=== PATIENT | male | born 1940 | race Caucasian/White ===

== ENCOUNTER 2016-10-10 02:59 | Inpatient (IN) | payer OTHER ==
--- NOTE | 2016-10-10 03:12 | EDPHY ---
H & P HPI/ROS: HPI CHIEF COMPLAINT: "I cannot urinate" HISTORY OF PRESENT ILLNESS: This patient very pleasant 75-year-old male presents to the emergency room by private vehicle after he states he is having a hard time urinating. He has a history of BPH and multiple TURP's. Patient states that he last urinated around 8:00 p.m. however around 10:00 p.m. he tried to urinate was only able to get a dribble out with dark blood present. States his abdomen is distended is unable to urinate and is requesting Stearns catheter. He is very familiar with this process in the past. He has a local urologist. He denies any cardiac history, pulmonary history neurological history. He tells me that at 1 point he did have to self-cat and he did get infection from self cath. Upon arrival to the emergency room patient is having 6/10 suprapubic discomfort and pain, unable to urinate, does tell me that he noticed some blood in his urine approximately 3 days ago it has progressively gotten worse. Past Medical History: BPH, gross hematuria, turp Past Surgical History: TURP Social History: Denies daily use of drugs alcohol tobacco products Family History: Noncontributory ROS REVIEW OF SYSTEMS: A comprehensive 10 point review of systems is otherwise negative aside from elements mentioned in the history of present illness. Exam Constitutional triage nursing summary reviewed, vital signs reviewed, awake/ alert. Eyes normal conjunctivae and sclera, EOMI, PERRLA. HENT normal inspection, atraumatic, moist mucus membranes, no epistaxis, neck supple/ no meningismus, no raccoon eyes. Respiratory clear to auscultation bilaterally, normal breath sounds, no respiratory distress, no wheezing. Cardiovascular rate normal, regular rhythm, no murmur, no edema, distal pulses normal. Gastrointestinal distended abdomen, tender palpation suprapubic, no rebound, no guarding, normal bowel sounds, no distension, no pulsatile mass. Genitourinary no CVA tenderness. Musculoskeletal no midline vertebral tenderness, full range of motion, no calf swelling, no tenderness of extremities, no meningismus, good pulses, neurovascularly intact. Skin pink, warm, & dry, no rash, skin atraumatic. Neurologic awake, alert and oriented x 3, AAOx3, moves all 4 extremities equally, motor intact, sensory intact, CN II-XII intact, normal cerebellar, normal vision, normal speech. Psychiatric normal mood/affect. Heme/Lymph/Immune no lymphadenopathy. Differential Diagnosis: includes but is not limited to in a particular order, urinary retention, outlet obstruction, gross hematuria, bladder tumor, renal failure Medical Decision Making: plan for this patient IV established, blood work checking creatinine, Stearns, bladder scan, ultrasound of bladder and kidneys. Re-evaluation: 0456: Patient has had 5 L of irrigation of his bladder he continues to drain bright red blood with clots there been multiple times in the emergency room is clotted his catheter off. This patient did have an ultrasound showed multiple large blood clots in his bladder. Due to the patient having ongoing obstruction despite 5 L of irrigation with intermittent clotting I will admitted to the hospitalist service due to urinary outflow obstruction and need for continuous bladder irrigation and neurological consult. 0503: At this time I will also consult Urology. Ultrasound of the bladder and kidneys The results of the study are large amount of blood clot in bladder, also right-sided hydroureter left-sided normal ureter. I discussed the results of this study with the radiologist Dr. Esquivel [id number]: spoke with Dr. Torres he would like the patient beam maintain NPO. Possibility that take patient to the operating room to evacuate clot. Source: Patient - Personal History Tetanus Vaccine Date: WITHIN 10 YRS - Medical/Surgical History Hx Asthma: No Hx Chronic Respiratory Disease: No Hx Diabetes: No Hx Cardiac Disease: Yes Hx Renal Disease: No Hx Cirrhosis: No Hx Alcoholism: No Hx HIV/AIDS: No Hx Splenectomy or Spleen Trauma: No Other PMH: medical BPH,. Surgery TURP 1.5 years ago second one. left hip replacement - Social History Smoking Status: Former smoker Constitutional: Initial Vital Signs Temperature (C) 36.5 C 10/10/16 03:00 Heart Rate 75 10/10/16 03:00 Respiratory Rate 18 10/10/16 03:00 Blood Pressure 125/85 H 10/10/16 03:00 O2 Sat (%) 96 10/10/16 03:00 O2 Delivery Mode Room Air Allergies/Adverse Reactions: No Allergies [NKA] Allergy (Verified 08/09/12 12:30) Home Medications: Medication Instructions Recorded Finasteride [Proscar 5 MG (*)] 5 mg PO HS 04/21/13 Medical Decision Making - Data Points Laboratory Results: Laboratory Results 10/10/16 03:30 10/10/16 03:30 10/10/16 10/10/16 10/10/16 03:33 03:30 03:30 WBC 7.76 10^3/uL 10^3/uL (3.80-9.50) RBC 4.61 10^6/uL 10^6/uL (4.40-6.38) Hgb 12.1 g/dL L g/dL (13.7-17.5) Hct 37.1 % L % (40.0-51.0) MCV 80.5 fL L fL (81.5-99.8) MCH 26.2 pg L pg (27.9-34.1) MCHC 32.6 g/dL g/dL (32.4-36.7) RDW 16.9 % H % (11.5-15.2) Plt Count 213 10^3/uL 10^3/uL (150-400) MPV 10.6 fL fL (8.7-11.7) Neut % (Auto) 57.0 % % (39.3-74.2) Lymph % (Auto) 31.1 % % (15.0-45.0) [place] % (Auto) 9.8 % % (4.5-13.0) Eos % (Auto) 0.8 % % (0.6-7.6) Baso % (Auto) 0.9 % % (0.3-1.7) Nucleat RBC Rel Count 0.0 % % (0.0-0.2) Absolute Neuts (auto) 4.43 10^3/uL 10^3/uL (1.70-6.50) Absolute Lymphs (auto) 2.41 10^3/uL 10^3/uL (1.00-3.00) Absolute Monos (auto) 0.76 10^3/uL 10^3/uL (0.30-0.80) Absolute Eos (auto) 0.06 10^3/uL 10^3/uL (0.03-0.40) Absolute Basos (auto) 0.07 10^3/uL 10^3/uL (0.02-0.10) Absolute Nucleated RBC 0.00 10^3/uL 10^3/uL (0-0.01) Immature Gran % 0.4 % % (0.0-1.1) Immature Gran # 0.03 10^3/uL 10^3/uL (0.00-0.10) PT 13.3 SEC SEC (12.0-15.0) INR 1.02 (0.83-1.16) APTT 29.3 SEC SEC (23.0-38.0) Sodium 137 mEq/L mEq/L (134-144) Potassium 4.4 mEq/L mEq/L (3.5-5.2) Chloride 106 mEq/L mEq/L (97-110) Carbon Dioxide 21 mEq/l L mEq/l (22-31) Anion Gap 10 mEq/L mEq/L (8-16) BUN 37 mg/dL H mg/dL (7-23) Creatinine 1.3 mg/dL mg/dL (0.7-1.3) Estimated GFR 54 Glucose 96 mg/dL mg/dL (70-100) Calcium 10.0 mg/dL mg/dL (8.5-10.4) Departure - Departure Disposition: [facility] Inpatient Acute Clinical Impression: Urinary retention, Hematuria, Urinary outflow obstruction Condition: Good
[2016-10-10] MEDS ORDERED: LIDOCAINE 2% JELLY 20 ML (UROJECT) UR ONE (03:15)
[2016-10-10] MEDS ORDERED: NS 1,000 ML IV ONE (03:20)
[2016-10-10] MEDS ORDERED: LIDOCAINE 2% JELLY 20 ML (UROJECT) ONE ×2 (03:26→12:57)
[2016-10-10 03:37] LABS: % IMMATURE GRANULYOCYTES 0.4 % (0.0-1.1); ABSOLUTE IMMATURE GRANULOCYTES 0.03 10^3/uL (0.00-0.10); ADD DIFF? NO; ADD MORPH? NO; ADD SCAN? NO; ATYPICAL LYMPHOCYTE FLAG 0 (0-99); FRAGMENT RBC FLAG 0 (0-99); HEMATOCRIT 37.1 % (40.0-51.0); HEMOGLOBIN 12.1 g/dL (13.7-17.5); LEFT SHIFT FLG 0 (0-99); LIPEMIA HEMOLYSIS FLAG 80 (0-99); MEAN CELL HEMOGLOBIN 26.2 pg (27.9-34.1); MEAN CELL HEMOGLOBIN CONCENTR. 32.6 g/dL (32.4-36.7); MEAN CELL VOLUME 80.5 fL (81.5-99.8); MEAN PLATELET VOLUME 10.6 fL (8.7-11.7); PLATELET CLUMPS FLAG 10 (0-99); PLATELET COUNT 213 10^3/uL (150-400); RED BLOOD CELL COUNT 4.61 10^6/uL (4.40-6.38); RED CELL DISTRIBUTION WIDTH 16.9 % (11.5-15.2)
[2016-10-10 04:07] LABS: ANION GAP 10 mEq/L (8-16); CARBON DIOXIDE 21 mEq/l (22-31); CHLORIDE 106 mEq/L (97-110); CREATININE 1.3 mg/dL (0.7-1.3); GLOMERULAR FILTRATION RATE 54; GLUCOSE 96 mg/dL (70-100); POTASSIUM 4.4 mEq/L (3.5-5.2); SODIUM 137 mEq/L (134-144)
[2016-10-10 05:20] LABS: INR 1.02 (0.83-1.16); PROTIME(PATIENT) 13.3 SEC (12.0-15.0)
[2016-10-10 05:21] LABS: APTT 29.3 SEC (23.0-38.0)
[2016-10-10] MEDS ORDERED: ONDANSETRON DISINTEGRATING 4 MG TAB PO PRN (07:55)
[2016-10-10] MEDS ORDERED: ONDANSETRON 4 MG/2 ML VIAL IVP PRN (07:55)
[2016-10-10] MEDS ORDERED: ACETAMINOPHEN 325 MG TAB PO PRN (07:55)
--- NOTE | 2016-10-10 08:38 | GHP ---
[f rep st] HISTORY AND PHYSICAL DATE OF ADMISSION: 10/10/2016 HISTORY OF PRESENT ILLNESS: The patient is a pleasant 75-year-old gentleman with a history of BPH, and intermittent urinary bleeding. He had presumed bleeding from his prostatic bed 2 years ago, req uiring fulguration of the prostatic bed, it was felt secondary to a venous bleed. Since then, he marcus s noticed intermittent urinary bleeding, he says as many as 3 times a month. He will notice small c lots that are as big as a cm or less, and typically they will last for a day, and then get better. This time, they started a couple of days ago, and they got worse and worse, and last night he was un able to urinate, so ultimately sought care. He takes no blood thinners, or aspirin, or other antiplatelet agents. He really has no vascular dis ease of which to speak. His coags are normal on presentation and they have historically been normal as well. He has been eating and drinking normally as of late. REVIEW OF SYSTEMS: A complete 10-point review of systems conducted and negative, except as noted in the HPI. PAST MEDICAL HISTORY: 1. BPH, status post TURP in 2009 or 2011 approximately. 2. Gross hematuria. 3. History of fulguration of the prostatic bed in 2013 by . 4. History of sepsis from self catheterization. 5. Left hip replacement in 2012. 6. History of left ureteroscopy in 2013, with apparent no filling defect. ALLERGIES: None. MEDICATIONS: His home medications are Finasteride, which it sounds like he takes infrequently. FAMILY HISTORY: Reviewed and unremarkable. SOCIAL HISTORY: Rare alcohol. No tobacco. 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 PHYSICAL EXAM: VITAL SIGNS: Temp 36.4, blood pressure 135/76, pulse 54, breathing 18 times a minut e, 93% on room air. GENERAL: No acute distress. HEENT: Sclerae anicteric. Oropharynx clear. Mu cous membranes are moist. NECK: Supple without lymphadenopathy or JVD. LUNGS: Clear to auscultat ion bilaterally. HEART: S1, S2. ABDOMEN: Soft, nontender, nondistended. LOWER EXTREMITIES: Wit hout edema. Calves are nontender. SKIN: Without rash. NEUROLOGIC: Nonfocal. : The patient h as pink urine in his 3 way Stearns bag. I have discussed the case with Dr. Pavan Sharma of the emergency department. LABS: Sodium 137, potassium 4.4, chloride 106, bicarb 21, BUN 37, creatinine 1.3, his baseline is about 0.9. Glucose is 96. INR is 1. PTT is normal. White count 7.8, hematocrit 3 7.1, platelets are 262,000. MCV is low at 80.5. UA shows 50 to 200 red cells. There is an ultrasound which shows clots in the bladder, I reviewed/interpreted the images myself. ASSESSMENT AND PLAN: A 75-year-old gentleman with obstructive urinary bleeding. 1. Obstruction, 3 way Stearns catheter was placed, irrigating at this point in time, it is too early to tell whether the clots have been evacuated to the point where he is no longer obstructed. 2. Microcytosis. We will also send iron studies, certainly a risk for iron deficiency given his ch ronic blood loss. He is not critically anemic. 3. History of prostatic bed bleeding. The patient has clots in his bladder. He may need a cystosc opy. Urology has been consulted and will see him. 4. Prophylaxis. Pharmacologic prophylaxis is contraindicated given his active bleeding. 5. Acute kidney injury. This is likely secondary to obstruction. We will follow. The patient paddy ears euvolemic on exam. We will allow him to eat and drink and check his labs in the morning. 6. Disposition: Inpatient status. I anticipate greater than 2 midnights required for improvement of this process. /[id number]/MODL
--- NOTE | 2016-10-10 08:50 | SOAPPROG ---
SOAP Progress Note Assessment/Plan: Assessment: Recurrent gross hematuria w/ clot retention Plan: Continue CBI for now. Pelvic CT to assess amount of clot. Continue NPO for now. Formal consult dictated (#[id number]). 10/10/16 08:55 Objective: Vital Signs Temp Pulse Resp BP Pulse Ox 36.4 C 54 L 18 135/76 H 96 10/10/16 07:02 10/10/16 07:02 10/10/16 07:02 10/10/16 07:02 10/10/16 07:02 10/09/16 10/10/16 10/11/16 05:59 05:59 05:59 Intake Total 1000 Output Total 500 3000 Balance 500 -3000 PT 13.3 SEC (12.0-15.0) 10/10/16 03:33 INR 1.02 (0.83-1.16) 10/10/16 03:33 ICD10 Worksheet Patient Problems: Problems Problem Status Onset Hematuria Acute Urinary outflow obstruction Acute Urinary retention Acute Gross hematuria Acute
--- NOTE | 2016-10-10 09:23 | GCON ---
[f rep st] CONSULTATION UROLOGY CONSULTATION DATE OF CONSULTATION: 10/10/2016 REFERRING PHYSICIAN: Hospitalist Service REASON FOR CONSULTATION: Gross hematuria with clot retention. HISTORY: This is a 75-year-old gentleman, well known to my practice, but has not been seen since , who has a history of intermittent recurrent gross hematuria that has been presumed to be seconda ry to BPH. The patient had previously undergone evaluation and was scheduled to undergo GreenLight photo vaporization of his prostate to definitively treat this tissue. However, he canceled the surg nirav in 2014 and has not returned to my office since then. Over the last several months, the patient has had intermittent gross painless hematuria that would last 1-3 days and recur a few times a erin h. However, he has now developed clot retention since I have last seen him. He also has been non c ompliant with finasteride, which has been used to help control his bleeding, for at least the last s everal months. He otherwise has been doing well and denies any recent history of urinary tract infe ctions. Most recent bleeding episode started about 2 days ago and progressively worsened to the poi nt that he presented to the emergency room earlier this morning with inability to void. Stearns yayo ter was inserted and continuous irrigation was started. The patient also denies fevers, flu-like sy mptoms, or abdominal/flank pain prior to hospital presentation. PAST MEDICAL HISTORY: BPH with urinary obstruction, intermittent recurrent gross hematuria with marina t retention. Otherwise healthy. PAST SURGICAL HISTORY: Includes intraoperative cystoscopy with bladder clot evacuation in October, left hip replacement in July 2012, transurethral prostate resections in approximately 2011 and 2009 (both performed at [facility]). ADMISSION MEDICATIONS: None. MEDICAL ALLERGIES: None known. FAMILY HISTORY: He has 1 maternal uncle and 1 maternal grandfather and both from prostate [facility] with a total of 2 maternal uncles who have been diagnosed and treated for prostate cancer. SOCIAL HISTORY: The patient is and lives in the [place] area. 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 He consumes alcohol products infrequently and has an approximately 5 pack year smoking history from tobacco use prior to age 25. He has 6 ch ildren. PHYSICAL EXAMINATION: GENERAL: Pleasant well-developed, well-nourished white male, lying supine in bed, in no acute distress. VITAL SIGNS: Blood pressure 134/76, pulse 54, respirations 18, oxygen s aturations 96% on room air, temperature 36.4 Celsius. HEENT: Normocephalic, atraumatic. NECK: Morales pple. HEART: Regular rate. CHEST: Unlabored respiratory pattern. ABDOMEN: Soft without palpabl e masses. No obvious organomegaly. Specifically, there is no suprapubic fullness appreciated. GEN MICAH: A 24-Latvian [address] way Ste[address] catheter in place draining slightly dark colored yellow urine with moderate rate of continuous irrigation currently. Non circumcised phallus with unremarkable scrotal structures otherwise. EXTREMITIES: Warm without cyanosis, clubbing, nor edema. NEUROLOGIC: He i s alert and oriented. He answers all questions appropriately with normal mood and affect. VASCULAR : Normal femoral, dorsalis pedis, and posterior tibial pulses bilaterally. LABORATORY: CBC today notable for hemoglobin 12.1, hematocrit 37.1. Coagulation parameters normal. Chemistry panel is unremarkable. IMPRESSION: Gross hematuria with clot urinary retention, with known history of benign prostatic hyp ertrophy and residual prostate adenoma that is thought to be the source of his bleeding. The patien t has been noncompliant with followup as well as finasteride medication. PLAN: 1. We will maintain continuous bladder irrigation for now. 2. Obtain noncontrast pelvic CT scan this morning to assess degree of remaining clot in the bladder . 3. Continue n.p.o. for the present time until I have a chance to review his CT scan and determine w hether he will need operative intervention. 4. Restart finasteride. Thank you for this consultation. /[id number]/MODL
[2016-10-10] MEDS: D5W 1/2 NS 1,000 ML IV SCH ×2 (10:55→16:29)
[2016-10-10] MEDS: FINASTERIDE 5 MG TAB PO SCH (11:02)
[2016-10-10] MEDS ORDERED: IOPAMIDOL (ISOVUE-300) 150 ML BTL IV ONE (12:57)
[2016-10-10 13:05] LABS: % SATURATION 7 % (20-55); TOTAL IRON BINDING CAPACITY 349 ug/dL (260-490)
[2016-10-10] MEDS ORDERED: MIDAZOLAM 2 MG/2 ML VIAL ONE (13:12)
[2016-10-10] MEDS ORDERED: PROPOFOL 200 MG/20 ML VIAL ONE ×2 (13:14→13:33)
[2016-10-10] MEDS ORDERED: fentaNYL 100 MCG/2 ML INJ ONE (13:14)
[2016-10-10 13:24] LABS: FERRITIN - BCH 9.4 ng/mL (17.9-464.0)
[2016-10-10] MEDS ORDERED: ceFAZolin 2 GM/DEXTROSE 100 ML IV ONE (13:30)
--- NOTE | 2016-10-10 13:35 | POSTOPPROG ---
Post Op Note Date of Operation: 10/10/16 Surgeon: Christiano Torres (# [id number]) Pre-op Diagnosis: Gross hematuria w/ clot urinary retention, BPH Post-op Diagnosis: Gross hematuria w/ clot urinary retention, BPH Procedure: Cysto, evacuation of multiple clots, prostate fulguration Findings: See op note Inf/Abcess present in the surg proc area at time of surgery?: No EBL: Minimal (< 10 cc) Complications: None Specimen(s): None Text Box - Additional Text Additional Text: To RR in stable condition. Continue CBI today. Hopefully will be able to remove catheter & discharge tomorrow.
[2016-10-10] MEDS ORDERED: OPIUM/BELLADONNA ALKALO SUPP PR PRN (14:12)
--- NOTE | 2016-10-10 14:55 | GOP ---
[f rep st] OPERATIVE REPORT DATE OF OPERATION: 10/10/2016 SURGEON: Christiano Torres MD ANESTHESIA: Laryngeal mask. PREOPERATIVE DIAGNOSIS: 1. Gross hematuria with clot urinary retention. 2. Benign prostatic hypertrophy with prostatic obstruction. POSTOPERATIVE DIAGNOSIS: 1. Gross hematuria with clot urinary retention. 2. Benign prostatic hypertrophy with prostatic obstruction. PROCEDURE PERFORMED: 1. Cystourethroscopy with evacuation of multiple obstructing blood clots. 2. Prostatic fossa fulguration. FINDINGS: 1. Multiple obstructing blood clots within the bladder. 2. Significant circumferential BPH with friable and bleeding prostatic mucosa. 3. Evidence of prior transurethral prostate resection involving the proximal one-third of the prosta tic fossa and bladder neck. SPECIMENS: None. ESTIMATED BLOOD LOSS: Less than 10 cc. INDICATIONS: This gentleman was admitted earlier this morning with clot urinary retention. He pres ents for operative management at this time. The indications for the procedures, as well as potentia l risks and complications, were discussed with the patient preoperatively. He appeared to understan d, his questions were answered, and he wished to proceed. Written informed surgical consent was the reafter obtained. DESCRIPTION OF PROCEDURE: The patient was brought to the operating room and administered laryngeal mask anesthesia. He was carefully placed in the dorsal lithotomy position on the cystoscopic table. The genital area was sterilely prepped with Betadine scrub and paint, and then draped in usual cyrus rile fashion. Cystoscopy was performed with a 30-degree lens through a 25-Malagasy sheath. Anterior urethra revealed no abnormalities. Posterior urethra revealed significant lateral lobe BPH with fri able mucosal vessels that were bleeding somewhat upon passage of the scope. The proximal one-third of the prostatic fossa had been previously resected. The bladder neck was open. The bladder was mo mlpoqehk-ec-jtvxavy trabeculated with a few shallow diverticula and some post-catheterization mucosa l erythematous changes. There were also several clots within the bladder, and these were evacuated through the cystoscope utilizing an OPTIMIZERx evacuator. Otherwise, no stones, tumors, or other foreign bodies were seen within the bladder. Ureteral orifices were normal in regard to shape and position along a somewhat inflamed trigone. After removing all the clots, a 26-Malagasy resectoscopic sheath with a visual obturator, Jose resec toscope, and 30-degree lens were inserted. I then used a button electrode to thoroughly fulgurate t he prostatic mucosal surface laterally and along the anterior aspect. This resulted in adequate hem ostasis. Once this completed, the instruments were removed, and a 24-Malagasy 3-way Stearns catheter in serted without complication. 25 cc of sterile fluid was placed in the balloon, and the catheter was irrigated manually with clear return. The catheter was connected to bag drainage as well as contin uous irrigation with normal saline. The patient was then awakened and transferred to his bed, then taken to the recovery room. He tolerated the procedure well overall. COMPLICATIONS: None. DISPOSITION: He was transferred to the recovery room in stable condition. He will be maintained on continuous bladder irrigation through tomorrow morning. Assuming his urine remains clear, his Fole y catheter will be removed tomorrow, and once he is adequately voiding, he should be ready for disch arge tomorrow as well. /[id number]/MODL
--- NOTE | 2016-10-10 15:55 | HOSPPROG ---
Hospitalist Progress Note Assessment/Plan: Patient seen and examined. Treating for hematuria/clots. S/p cytsoscopy today per Dr Torres. Plan is to continue CBI tonight, possible dc tomorrow. Objective: Vital Signs Temp Pulse Resp BP Pulse Ox 36.4 C 50 L 14 135/79 H 94 10/10/16 14:57 10/10/16 14:57 10/10/16 14:57 10/10/16 11:56 10/10/16 11:56 10/09/16 10/10/16 10/11/16 05:59 05:59 05:59 Intake Total 1000 805 Output Total 500 3150 Balance 500 -2345 PT 13.3 SEC (12.0-15.0) 10/10/16 03:33 INR 1.02 (0.83-1.16) 10/10/16 03:33 ICD10 Worksheet Patient Problems: Problems Problem Status Onset Gross hematuria Acute Urinary retention Acute Hematuria Acute Urinary outflow obstruction Acute
--- NOTE | 2016-10-10 20:26 | SOAPPROG ---
SOAP Progress Note Assessment/Plan: Assessment: Recurrent gross hematuria w/ clot retention, s/p intraoperative clot evacuation and prostatic fossa fulguration earlier today. Plan: 1. 3-way Stearns replaced this evening due to small clot obstruction. Continue CBI overnight. 2. Will stop CBI in AM and should be ready for Stearns removal prior to discharge tomorrow. 3. Continue Proscar 5 mg daily following discharge. 4. No strenuous activity or lifting > 15 lbs. for 1 week. 5. FU in my office in 3 weeks. Subjective: Called by nursing for obstructed catheter, refractory to manual irrigation. Objective: Vital Signs Temp Pulse Resp BP Pulse Ox 36.2 C 51 L 16 128/76 H 99 10/10/16 16:09 10/10/16 16:09 10/10/16 16:09 10/10/16 16:09 10/10/16 16:09 10/09/16 10/10/16 10/11/16 05:59 05:59 05:59 Intake Total 1000 1396 Output Total 500 3250 Balance 500 -1854 PT 13.3 SEC (12.0-15.0) 10/10/16 03:33 INR 1.02 (0.83-1.16) 10/10/16 03:33 ICD10 Worksheet Patient Problems: Problems Problem Status Onset Hematuria Acute Urinary outflow obstruction Acute Urinary retention Acute Gross hematuria Acute
[2016-10-10] MEDS ORDERED: FINASTERIDE 5 MG TAB PO SCH (21:00)
[2016-10-11] MEDS: D5W 1/2 NS 1,000 ML IV SCH (01:24)
[2016-10-11 06:37] LABS: % IMMATURE GRANULYOCYTES 0.4 % (0.0-1.1); ABSOLUTE IMMATURE GRANULOCYTES 0.02 10^3/uL (0.00-0.10); ADD DIFF? NO; ADD MORPH? NO; ADD SCAN? NO; ATYPICAL LYMPHOCYTE FLAG 0 (0-99); FRAGMENT RBC FLAG 0 (0-99); HEMATOCRIT 33.2 % (40.0-51.0); HEMOGLOBIN 10.5 g/dL (13.7-17.5); LEFT SHIFT FLG 0 (0-99); LIPEMIA HEMOLYSIS FLAG 80 (0-99); MEAN CELL HEMOGLOBIN 26.2 pg (27.9-34.1); MEAN CELL HEMOGLOBIN CONCENTR. 31.6 g/dL (32.4-36.7); MEAN CELL VOLUME 82.8 fL (81.5-99.8); MEAN PLATELET VOLUME 11.3 fL (8.7-11.7); PLATELET CLUMPS FLAG 0 (0-99); PLATELET COUNT 180 10^3/uL (150-400); RED BLOOD CELL COUNT 4.01 10^6/uL (4.40-6.38); RED CELL DISTRIBUTION WIDTH 17.2 % (11.5-15.2)
[2016-10-11 07:01] LABS: ANION GAP 9 mEq/L (8-16); CALCIUM 9.1 mg/dL (8.5-10.4); CARBON DIOXIDE 20 mEq/l (22-31); CHLORIDE 111 mEq/L (97-110); CREATININE 0.9 mg/dL (0.7-1.3); GLOMERULAR FILTRATION RATE > 60; GLUCOSE 83 mg/dL (70-100); POTASSIUM 4.3 mEq/L (3.5-5.2); SODIUM 140 mEq/L (134-144)
[2016-10-11 07:47] VITALS: RESP 14; O2SAT 95
[2016-10-11] MEDS: FINASTERIDE 5 MG TAB PO SCH (10:11)
[2016-10-11 11:45] VITALS: BP 107/71; PULSE 74; TEMP 97.3
--- NOTE | 2016-10-11 12:37 | GDS ---
[f rep st] DISCHARGE SUMMARY DIAGNOSES: 1. Hematuria. 2. Bladder outlet obstruction due to clots. 3. Benign prostatic hyperplasia. PROCEDURE: Cystoscopy with clot removal and prostatic fossa fulguration. HOSPITAL COURSE: A 75-year-old man with a history of hematuria due to likely BPH presented with the same. He had bladder outlet obstructive symptoms due to clot. He also had gross hematuria. He wa s initially placed on CBI, was then taken to cystoscopy by Dr. Torres. Since that, his Stearns cathet er has been removed. He is urinating well without obstructive symptoms and no hematuria. He will r esume his Proscar and follow up with Dr. Torres in 3-4 weeks for more definitive treatment. BILLING: I spent more than 30 minutes on the day of discharge coordinating care and discussing this with Dr. Torres. He was inpatient as he did improve more rapidly than would have been expected on his initial presentation. /[id number]/MODL
== END 2016-10-11 13:21 | disposition home or self-care (01) | DRG 718 ==
LOC: F2W 06:23 → F1N 15:39
PROVIDERS: ADMIT Internal Medicine; ATTEND Internal Medicine
PROC: 0T9B70Z Drainage of Bladder with Drainage Device, Via Natural or Artificial Opening (ICD-10-PCS; 2016-10-10)
PROC: 3E1K78Z Irrigation of Genitourinary Tract using Irrigating Substance, Via Natural or Artificial Opening (ICD-10-PCS; 2016-10-10)
PROC: 0W3R8ZZ Control Bleeding in Genitourinary Tract, Via Natural or Artificial Opening Endoscopic (ICD-10-PCS; principal; 2016-10-10 12:45)
PROC: 0TCB8ZZ Extirpation of Matter from Bladder, Via Natural or Artificial Opening Endoscopic (ICD-10-PCS; principal; 2016-10-10 12:45)
DX: N42.1 Congestion and hemorrhage of prostate (principal); N32.89 Other specified disorders of bladder; R33.9 Retention of urine, unspecified; N40.1 Benign prostatic hyperplasia with lower urinary tract symptoms; Z96.642 Presence of left artificial hip joint
CPT/HCPCS: J0690; J2250; J2704; J3010; Q9967

== ENCOUNTER 2017-01-30 10:00 | Inpatient (IN) | payer OTHER ==
--- NOTE | 2017-01-30 10:47 | EDPHY ---
H & P Time Seen by Provider: 01/30/17 10:30 HPI/ROS: CHIEF COMPLAINT: Unable to urinate, hematuria HISTORY OF PRESENT ILLNESS: 76-year-old male with a history BPH presents hematuria and inability to urinate. His hematuria began around 21:00 yesterday evening, with considerable clotting. Today, he has been unable to urinate and is quite uncomfortable. He presented on 10/10/2016 for gross hematuria and urinary retention. He was admitted for bladder irrigation; cystoscopy revealed a friable prostate. He has had no difficulty since that time until yesterday. Symptoms are similar to those leading to his last admission. No fever, chills, vomiting, diarrhea, or other associated symptoms. Not anticoagulated. REVIEW OF SYSTEMS: Constitutional: No fever, no chills Eyes: No visual changes ENT: No sore throat Respiratory: No cough, no shortness of breath Cardiac: No chest pain Gastrointestinal: No nausea, no vomiting, no abdominal pain Genitourinary: Hematuria, urinary retention Musculoskeletal: No leg pain or swelling Skin: No rash Neurological: No headache, no numbness, no weakness Psychiatric: No depression Past Medical/Surgical History: BPH, TURP x2, left hip replacement. Social History: at bedside. Smoking Status: Former smoker Physical Exam: General Appearance: Alert, appears in pain Eyes: Pupils equal and round, no conjunctival pallor or injection ENT, Mouth: Mucous membranes moist Neck: Normal inspection Respiratory: Lungs are clear to auscultation Cardiovascular: Regular rate and rhythm Gastrointestinal: Suprapubic tenderness and distension. Abdomen is soft. Neurological: A&O, nonfocal, normal gait Skin: Warm and dry, no rash Extremities: Nontender, no pedal edema Psychiatric: Mood and affect normal Constitutional: Initial Vital Signs Temperature (C) 36.4 C 01/30/17 10:09 Heart Rate 66 01/30/17 10:09 Respiratory Rate 17 01/30/17 10:09 Blood Pressure 112/61 01/30/17 10:09 O2 Sat (%) 97 01/30/17 10:09 O2 Delivery Mode Room Air O2 (L/minute) 2 Allergies/Adverse Reactions: No Allergies [NKA] Allergy (Verified 08/09/12 12:30) Home Medications: Medication Instructions Recorded Finasteride [Proscar 5 MG (*)] 5 mg PO HS 04/21/13 Glucosamine Sulfate [Glucosamine 500 mg PO DAILY 01/30/17 Sulfate 500 MG (*)] Multivitamin with Minerals 1 each PO DAILY 01/30/17 [Multiple Vitamin] Tadalafil [Cialis] 20 mg PO DAILY PRN 01/30/17 Medical Decision Making ED Course/Re-evaluation: Stearns catheter placed. 200mL germain blood expressed. Irrigation performed. Plan to consult with Dr. Torres, urologist. Plan to admit. 11:40 Spoke with hospitalist service. Dr. Cota accepts admission for gross hematuria. 11:[address] Torres's office. He will consult. 12:20 Plan to administer morphine for pain management. Differential Diagnosis: Differential diagnosis includes but not limited to gross hematuria, urinary retention, outlet obstruction, bladder tumor, renal failure. - Data Points Laboratory Results: Laboratory Results 01/30/17 10:40 01/30/17 10:40 01/30/17 01/30/17 01/30/17 10:40 10:40 10:25 WBC 10.43 10^3/uL H 10^3/uL (3.80-9.50) RBC 4.42 10^6/uL 10^6/uL (4.40-6.38) Hgb 11.1 g/dL L g/dL (13.7-17.5) Hct 34.9 % L % (40.0-51.0) MCV 79.0 fL L fL (81.5-99.8) MCH 25.1 pg L pg (27.9-34.1) MCHC 31.8 g/dL L g/dL (32.4-36.7) RDW 18.6 % H % (11.5-15.2) Plt Count 252 10^3/uL 10^3/uL (150-400) MPV 10.9 fL fL (8.7-11.7) Neut % (Auto) 76.2 % H % (39.3-74.2) Lymph % (Auto) 15.3 % % (15.0-45.0) [place] % (Auto) 6.9 % % (4.5-13.0) Eos % (Auto) 0.6 % % (0.6-7.6) Baso % (Auto) 0.7 % % (0.3-1.7) Nucleat RBC Rel Count 0.0 % % (0.0-0.2) Absolute Neuts (auto) 7.95 10^3/uL H 10^3/uL (1.70-6.50) Absolute Lymphs (auto) 1.60 10^3/uL 10^3/uL (1.00-3.00) Absolute Monos (auto) 0.72 10^3/uL 10^3/uL (0.30-0.80) Absolute Eos (auto) 0.06 10^3/uL 10^3/uL (0.03-0.40) Absolute Basos (auto) 0.07 10^3/uL 10^3/uL (0.02-0.10) Absolute Nucleated RBC 0.00 10^3/uL 10^3/uL (0-0.01) Immature Gran % 0.3 % % (0.0-1.1) Immature Gran # 0.03 10^3/uL 10^3/uL (0.00-0.10) Sodium 140 mEq/L mEq/L (134-144) Potassium 4.1 mEq/L mEq/L (3.5-5.2) Chloride 107 mEq/L mEq/L (97-110) Carbon Dioxide 21 mEq/l L mEq/l (22-31) Anion Gap 12 mEq/L mEq/L (8-16) BUN 26 mg/dL H mg/dL (7-23) Creatinine 1.1 mg/dL mg/dL (0.7-1.3) Estimated GFR > 60 Glucose 112 mg/dL H mg/dL (70-100) Calcium 10.0 mg/dL mg/dL (8.5-10.4) Urine Color RED Urine Appearance TURBID Urine pH TNP Ur Specific [place] TNP Urine Protein TNP Urine Ketones TNP Urine Blood TNP Urine Nitrate TNP Urine Bilirubin TNP Urine Urobilinogen TNP Ur Leukocyte Esterase TNP Urine RBC TNP Urine WBC TNP Ur Epithelial Cells TNP Urine Glucose TNP Medications Given: Discontinued Medications Morphine Sulfate (Morphine) 4 mg IVP EDNOW ONE Stop: 01/30/17 12:24 Last Admin: 01/30/17 12:45 Dose: 4 mg Ondansetron HCl (Zofran) 4 mg IVP EDNOW ONE Stop: 01/30/17 12:22 Last Admin: 01/30/17 12:45 Dose: 4 mg Departure - Departure Disposition: [facility] Inpatient Acute Clinical Impression: Gross hematuria Condition: Fair Report Scribed for: Natali Rodriguez Report Scribed by: Daphne Claros Date of Report: 01/30/17 Time of Report: 10:52 Physician Review and Approval Statement: 01/30/17 10:53 Portions of this note were transcribed by a certified medical technician. I personally performed a history, physical exam, medical decision making, and confirmed accuracy of information the transcribed note.
[2017-01-30 10:48] LABS: COLOR RED
[2017-01-30] MEDS ORDERED: LIDOCAINE 2% JELLY 20 ML (UROJECT) ONE (10:57)
[2017-01-30 11:07] LABS: % IMMATURE GRANULYOCYTES 0.3 % (0.0-1.1); ABSOLUTE IMMATURE GRANULOCYTES 0.03 10^3/uL (0.00-0.10); ADD DIFF? NO; ADD MORPH? NO; ADD SCAN? NO; ATYPICAL LYMPHOCYTE FLAG 0 (0-99); FRAGMENT RBC FLAG 20 (0-99); HEMATOCRIT 34.9 % (40.0-51.0); HEMOGLOBIN 11.1 g/dL (13.7-17.5); LEFT SHIFT FLG 20 (0-99); LIPEMIA HEMOLYSIS FLAG 80 (0-99); MEAN CELL HEMOGLOBIN 25.1 pg (27.9-34.1); MEAN CELL HEMOGLOBIN CONCENTR. 31.8 g/dL (32.4-36.7); MEAN PLATELET VOLUME 10.9 fL (8.7-11.7); PLATELET CLUMPS FLAG 10 (0-99); PLATELET COUNT 252 10^3/uL (150-400); RED BLOOD CELL COUNT 4.42 10^6/uL (4.40-6.38); RED CELL DISTRIBUTION WIDTH 18.6 % (11.5-15.2)
[2017-01-30 11:19] LABS: ANION GAP 12 mEq/L (8-16); CARBON DIOXIDE 21 mEq/l (22-31); CHLORIDE 107 mEq/L (97-110); CREATININE 1.1 mg/dL (0.7-1.3); GLOMERULAR FILTRATION RATE > 60; GLUCOSE 112 mg/dL (70-100); POTASSIUM 4.1 mEq/L (3.5-5.2); SODIUM 140 mEq/L (134-144)
[2017-01-30] MEDS ORDERED: ONDANSETRON 4 MG/2 ML VIAL IVP ONE (12:21)
[2017-01-30] MEDS ORDERED: oxyCODONE IR 5 MG TAB PO PRN (13:28)
[2017-01-30] MEDS ORDERED: ONDANSETRON 4 MG/2 ML VIAL IVP PRN (13:28)
[2017-01-30] MEDS ORDERED: ONDANSETRON DISINTEGRATING 4 MG TAB PO PRN (13:28)
[2017-01-30] MEDS ORDERED: ACETAMINOPHEN 325 MG TAB PO PRN (13:28)
--- NOTE | 2017-01-30 14:16 | GHP ---
[f rep st] HISTORY AND PHYSICAL DATE OF ADMISSION: 01/30/2017 CHIEF COMPLAINT: Hematuria, urinary retention. HISTORY OF PRESENT ILLNESS: The patient is a 76-year-old with a history significant for BPH. He marcus s been followed by Dr. Torres. He has had 2 TURPs in the past, in 2011 and 2009. He has noted inte rmittent hematuria for years. Typically, this last for 1-3 days. It spontaneously resolves. He marcus s not had issues with any urinary retention or clots up until September when he was admitted here. At t hat time, he had bladder irrigation, underwent cystoscopy by Dr. Torres for evacuation of multiple c lots and prostate fulguration. He has been home and has not had any further hematuria up until this admission. He says his symptoms started about 9 p.m. last night. He noted some thick, sludgy bloo d coming out of his urethra. He started developing increasing urinary retention and difficulty urin ating, so he tried to self cath himself 3 times. Each time he was only getting a few ounces out. O vernight his abdominal discomfort became more and more intense until this morning when he was unable to take the pain anymore and came to the emergency department for further evaluation and treatment. They placed a 3-way Stearns and had started irrigating his bladder. He had a number of clots and bl ood come out immediately, and after a was given a little morphine, he currently feels good with mini mal pain. He denies any recent fevers, chills, illnesses. He has had no chest pain, cough, shortne ss of breath. No other abdominal complaints including nausea, vomiting. No bowel changes. No lowe r extremity edema. No other neurologic signs and symptoms. REVIEW OF SYSTEMS: A 10-point review of systems (constitutional, eyes, ENT, endocrine, cardiovascul ar, pulmonary, abdomen, , musculoskeletal, neurologic, psychiatric) were all reviewed and pertinen t positives per the HPI. PAST MEDICAL HISTORY: BPH, recurrent hematuria, and a history of a total hip replacement. FAMILY HISTORY: He has 1 uncle and 1 maternal grandfather who from prostate cancer, 2 other ma ternal uncles with prostate cancer. SOCIAL HISTORY: He is . He has a very remote history of smoking when he was 25 and occasion ally drinks alcohol. PHYSICAL EXAMINATION: VITAL SIGNS: He is afebrile. Heart rate 62, blood pressure 127/74, respirat ions 16. He is 94% on room air. GENERAL: He is a very pleasant 76-year-old who is in no distress. He is alert. HEENT: Pupils are small but equal. Extraocular movements intact. Sclerae anicteri c. Mucous membranes moist. NECK: Supple. No adenopathy. No carotid bruits. HEART: Regular rat e and rhythm. No murmur, gallop, or rub. LUNGS: Clear to auscultation. No wheeze, rhonchi, or ra les. ABDOMEN: Soft, nontender, nondistended to palpation. : He has a Stearns in place. EXTREMIT IES: No clubbing, cyanosis, or edema. MUSCULOSKELETAL: No joint deformities or effusions. NEUROL OGIC: His speech is fluent. He is alert. He is moving all 4 extremities. PSYCHIATRIC: His mood is normal, and he is appropriate. LABORATORY DATA: CBC shows a white count of 10.4, hemoglobin 11.1, which is fairly stable for him, and platelet count of 252. Electrolytes are normal, BUN 26, creatinine 1.1. ASSESSMENT AND PLAN: 1. 76-year-old presents with hematuria and clots with secondary urinary retention. Plan: Admit fo r observation. Place 3-way catheter for irrigation and consult Urology for further recommendations. I will defer to them if they want to do another imaging study like an ultrasound to see if there i s a large hematoma within his bladder. 2. DVT prophylaxis. Given his gross hematuria, will hold chemical prophylaxis and encourage ambula tion while he is here in the hospital. 3. Anemia, chronic. He does have low iron levels and would benefit from further evaluation with a colonoscopy, although I suspect he may have low iron levels simply from ongoing hematuria. Will def er this to his outpatient doctor. He plans on establishing care with a primary care provider and ho ninfaully, Dr. Nikolay Macias, his previous provider. /[id number]/MODL
[2017-01-30] MEDS: NS 1,000 ML IV SCH (15:34)
[2017-01-30] MEDS ORDERED: IOPAMIDOL (ISOVUE-300) 100 ML BTL ONE (16:07)
[2017-01-30] MEDS ORDERED: OPIUM/BELLADONNA ALKALO SUPP PR PRN (20:10)
[2017-01-30] MEDS: FINASTERIDE 5 MG TAB PO SCH (21:13)
--- NOTE | 2017-01-30 22:07 | GCON ---
[f rep st] CONSULTATION DATE OF CONSULTATION: 01/30/2017 REASON FOR CONSULT: Gross hematuria, urinary retention. HISTORY OF PRESENT ILLNESS: This is a pleasant 76-year-old male who is well known to our office wit h a history of recurrent gross hematuria with clot retention. He reports that last night around 9 p .m. he started to have blood in his urine, increasing difficulty voiding, and was unable to void at 5 this morning. He went into the emergency room and was found to have 200 cc of urine in his bladde r, with placement of a 22-Brazilian catheter, and had multiple clots irrigated. He is denying any curr ent bladder pain. He did have clot irrigation with cystoscopy by Dr. Torres in September, and at that t nancy underwent prostate fossa fulguration with cystourethroscopy and evacuation of multiple obstructi ng blood clots. Per patient report, he has been doing well until now. PAST SURGICAL HISTORY: BPH, TURP x2, left hip replacement. SOCIAL HISTORY: Former smoker. Lives with his . ALLERGIES: No known drug allergies. MEDICATIONS: Please see [facility] for review. REVIEW OF SYSTEMS: 10-point review of systems negative except as mentioned in HPI. PHYSICAL EXAM: VITAL SIGNS: Blood pressure 127/74, heart rate 62, respirations 16, O2 94 on room a ir. GENERAL: This is a well-developed, well-nourished male in no acute distress. HEENT: Normocep halic, atraumatic. Extraocular movements intact. NECK: Supple. No lymphadenopathy. Trachea midl ine. RESPIRATORY: No accessory respiratory muscle use. CARDIAC: Regular rate and rhythm. No obv ious JVD. No lower extremity edema. GI: Abdomen soft, nondistended, nontender to palpation. No h epatosplenomegaly. : No CVA tenderness. No bladder distention to palpation. The patient has a 22-Brazilian catheter in the penis, draining light pink to medium pink urine, without clots in the bag currently. INTEGUMENT: No obvious rashes or lesions. NEUROLOGIC: Patient is alert and oriented. Affect appropriate to situation. MUSCULOSKELETAL: Patient supine while examined, but moving upper extremities without difficulty. LABS: White blood cell count 10.43, hemoglobin 11.1, hematocrit 34.9, platelets 252. Coags biological chemist ry: Sodium 148, potassium 4.1, chloride 107, carbon dioxide 21, anion gap 12, BUN 26, creatinine 1. 1, glucose 112, calcium 10. ASSESSMENT AND PLAN: Gross hematuria. Clot retention. Recommend the patient continue to have clot CBI run, with hand clot irrigation as needed. Will order a pelvic CT to assess size of clot in the bladder. Consider cystoscopy with clot evacuation if hematuria continues or clots are unable to pa ss through catheter. /[id number]/MODL
[2017-01-31 04:41] LABS: HEMATOCRIT 30.4 % (40.0-51.0); HEMOGLOBIN 9.8 g/dL (13.7-17.5); MEAN CELL HEMOGLOBIN 25.9 pg (27.9-34.1); MEAN CELL HEMOGLOBIN CONCENTR. 32.2 g/dL (32.4-36.7); MEAN CELL VOLUME 80.4 fL (81.5-99.8); RED BLOOD CELL COUNT 3.78 10^6/uL (4.40-6.38); RED CELL DISTRIBUTION WIDTH 18.8 % (11.5-15.2)
[2017-01-31] MEDS: NS 1,000 ML IV SCH (04:41)
[2017-01-31 06:04] LABS: ANION GAP 7 mEq/L (8-16); CALCIUM 9.1 mg/dL (8.5-10.4); CARBON DIOXIDE 21 mEq/l (22-31); CHLORIDE 113 mEq/L (97-110); CREATININE 0.9 mg/dL (0.7-1.3); GLOMERULAR FILTRATION RATE > 60; GLUCOSE 83 mg/dL (70-100); POTASSIUM 4.2 mEq/L (3.5-5.2); SODIUM 141 mEq/L (134-144)
--- NOTE | 2017-01-31 08:56 | SOAPPROG ---
SOAP Progress Note Assessment/Plan: Assessment: Recurrent clot urinary retention - stable. Decreased H&H indicative of fairly significant bleeding, although I do not believe he is currently bleeding. Still has a significant amount of bladder clot, per yesterday's CT. Plan: 1. Continue CBI w/ manual irrigation prn today. 2. Will tentatively schedule intraoperative clot evacuation and prostate fulguration for tomorrow. Discussed w/ pt. and nursing staff. Subjective: No complaints currently. Did not require manual irrigation overnight. Objective: Vital Signs Temp Pulse Resp BP Pulse Ox 36.6 C 45 L 16 122/64 H 94 01/31/17 04:14 01/31/17 04:14 01/31/17 04:14 01/31/17 04:14 01/31/17 04:14 Laboratory Results 01/31/17 04:22 01/31/17 04:22 01/30/17 01/31/17 02/01/17 05:59 05:59 05:59 Intake Total 30 1134 Output Total 800 3260 Balance -770 -4716 Physical Exam - Physical Exam General Appearance: WD/WN, alert, no apparent distress Abdomen: non-tender, soft Male Genitalia: other (urine clear via Stearns on CBI) Skin: normal color, warm/dry Extremities: non-tender, normal inspection Neuro/Psych: alert, normal mood/affect, oriented x 3 ICD10 Worksheet Patient Problems: Problems Problem Status Onset Gross hematuria Acute Hematuria Acute Urinary outflow obstruction Acute Urinary retention Acute
[2017-01-31] MEDS ORDERED: NON-FORMULARY NEW DRUG (Multivitamin With Minerals [Multiple Vitamin] 1 EACH) PO SCH (09:00)
[2017-01-31] MEDS: GLUCOSAMINE SULF 500 MG CAP PO SCH (09:51)
[2017-01-31] MEDS: MULTIVITAMINS W-MINERALS 1 EACH TAB PO SCH (10:04)
[2017-01-31] MEDS ORDERED: PROTOCOL MAGNESIUM 1 DOSE IV PRN (10:41)
--- NOTE | 2017-01-31 10:49 | HOSPPROG ---
Hospitalist Progress Note Assessment/Plan: 76 yo male with hx of BPH followed by Dr. Valle admitted for hematuria and urinary retention. 3 way estrada/bladder irrigation started in the E.D. Pelvic CT c/w large bladder thrombus. O/N has developed asymptomatic bradycardia. Not on tele #Hematuria, BPH, Large Bladder Thrombus -Estrada/irrigation per Uro -Likely will have surgical removal tomorrow #New onset bradycardia. He reports a baseline of 60. In shape, lots of physical activity. -Not symptomatic, no CP or palpitations -Check EKG -Place on telemetry -check Mg, other electrolytes reviewed and ok -No Nausea or vomiting at this time -Has received pain meds #Acute Pain due to hematuria/bladder thrombus -pain mgmt #Anemia, likely iron deficient. likely chronic. Will need f/u with his PCP for discussion about colonoscopy #DVT proph: no chemical proph due to clot/hematuria -Start SCD's Subjective: Abd pain is better. Hematuria better. CT pelvis c/w large bladder thrombus/mass. New onset bradycardia. Not symptomatic. No CP or SOB. First encounter with this patient Objective: Vital Signs Temp Pulse Resp BP Pulse Ox 36.6 C 55 L 18 117/65 93 01/31/17 08:54 01/31/17 08:54 01/31/17 08:54 01/31/17 08:54 01/31/17 08:54 Laboratory Results 01/31/17 04:22 01/31/17 04:22 01/30/17 01/31/17 02/01/17 05:59 05:59 05:59 Intake Total 30 1134 Output Total 800 3260 Balance -610 -8962 - Physical Exam Constitutional: no apparent distress, appears nourished, not in pain Eyes: PERRL, EOMI Ears, Nose, Mouth, Throat: moist mucous membranes, hearing normal, ears appear normal Cardiovascular: no murmur, rub, or gallop, bradycardia, No JVD, No edema Respiratory: no respiratory distress, no rales or rhonchi, clear to auscultation Gastrointestinal: soft, non-tender abdomen Genitourinary: estrada in urethra Skin: warm Neurologic: AAOx3, sensation intact bilaterally, No weakness Psychiatric: interacting appropriately, not anxious, not encephalopathic ICD10 Worksheet Patient Problems: Problems Problem Status Onset Gross hematuria Acute Hematuria Acute Urinary outflow obstruction Acute Urinary retention Acute
--- NOTE | 2017-01-31 11:12 | CPEKG ---
Heart Rate: 52 RR Interval: 1154 P-R Interval: 192 QRSD Interval: 102 QT Interval: 416 QTC Interval: 387 P [place]: 55 QRS [place]: 10 T Wave [place]: 48 EKG Severity - NORMAL ECG - EKG Impression: SINUS RHYTHM EKG Impression: Agree with above. No significant change from August 12, 2012 Electronically Signed By: Mitul Vickers 31-Jan-2017 17:08:12
[2017-01-31] MEDS ORDERED: PNEUMOC 13-VAL CONJ-DIP CRM/PF 0.5 ML SYR IM ONE (12:54)
[2017-01-31] MEDS: FINASTERIDE 5 MG TAB PO SCH (20:38)
[2017-02-01 05:46] LABS: % IMMATURE GRANULYOCYTES 0.3 % (0.0-1.1); ABSOLUTE IMMATURE GRANULOCYTES 0.02 10^3/uL (0.00-0.10); ADD DIFF? NO; ADD MORPH? NO; ADD SCAN? NO; ATYPICAL LYMPHOCYTE FLAG 0 (0-99); FRAGMENT RBC FLAG 20 (0-99); HEMATOCRIT 31.5 % (40.0-51.0); HEMOGLOBIN 10.1 g/dL (13.7-17.5); LEFT SHIFT FLG 0 (0-99); LIPEMIA HEMOLYSIS FLAG 80 (0-99); MEAN CELL HEMOGLOBIN 25.6 pg (27.9-34.1); MEAN CELL HEMOGLOBIN CONCENTR. 32.1 g/dL (32.4-36.7); MEAN CELL VOLUME 79.9 fL (81.5-99.8); MEAN PLATELET VOLUME 11.4 fL (8.7-11.7); PLATELET CLUMPS FLAG 10 (0-99); PLATELET COUNT 214 10^3/uL (150-400); RED BLOOD CELL COUNT 3.94 10^6/uL (4.40-6.38)
[2017-02-01 06:03] LABS: ANION GAP 9 mEq/L (8-16); CALCIUM 9.4 mg/dL (8.5-10.4); CARBON DIOXIDE 22 mEq/l (22-31); CHLORIDE 111 mEq/L (97-110); CREATININE 0.9 mg/dL (0.7-1.3); GLOMERULAR FILTRATION RATE > 60; GLUCOSE 81 mg/dL (70-100); POTASSIUM 4.1 mEq/L (3.5-5.2); SODIUM 142 mEq/L (134-144)
[2017-02-01] MEDS: GLUCOSAMINE SULF 500 MG CAP PO SCH (09:50)
[2017-02-01] MEDS: MULTIVITAMINS W-MINERALS 1 EACH TAB PO SCH (09:51)
[2017-02-01] MEDS ORDERED: levOFLOXACIN 500 MG/DEXTROSE 100 ML IV ONE (11:30)
[2017-02-01] MEDS ORDERED: MIDAZOLAM 2 MG/2 ML VIAL IVP ONE (12:14)
--- NOTE | 2017-02-01 12:17 | PDANEPAE ---
ANE Past Medical History - Cardiovascular History Hx Hypertension: No Hx Arrhythmias: No Hx Chest Pain: No Hx Coronary Artery / Peripheral Vascular Disease: No Hx CHF / Valvular Disease: No Hx Palpitations: No - Pulmonary History Hx COPD: No Hx Asthma/Reactive Airway Disease: No Hx Recent Upper Respiratory Infection: No Hx Oxygen in Use at Home: No Hx Sleep Apnea: No Sleep Apnea Screening Result - Last Documented: Positive - Endocrine History Hx Diabetes: No Hypothyroid: No Hyperthyroid: No Obesity: no - Chronic Pain History Chronic Pain: No ANE Review of Systems - Exercise capacity METS (RN): 6 METS - Systems Cardiac: Reports: no symptoms Respiratory: Reports: no symptoms Gastrointestinal: Reports: no symptoms Genitourinary: Reports: hematuria Muscolosketal: Reports: no symptoms ANE Patient History - Allergies Allergies/Adverse Reactions: No Allergies [NKA] Allergy (Verified 08/09/12 12:30) - Home Medications Home medications: home medication list seen and reviewed Home Medications: Finasteride [Proscar 5 MG (*)] 5 mg PO HS 04/21/13 [Last Taken 01/29/17] Glucosamine Sulfate [Glucosamine Sulfate 500 MG (*)] 500 mg PO DAILY 01/30/17 [ Last Taken Unknown] Multivitamin with Minerals [Multiple Vitamin] 1 each PO DAILY 01/30/17 [Last Taken Unknown] Tadalafil [Cialis] 20 mg PO DAILY PRN 01/30/17 [Last Taken Unknown] - NPO status NPO Status: no food or drink >8 hours NPO Since - Liquids (Date): 01/31/17 NPO Since - Liquids (Time): 19:00 NPO Since - Solids (Date): 01/31/17 NPO Since - Solids (Time): 19:00 - Anes Hx Anes Hx: no prior problems - Smoking Hx Smoking Status: Former smoker ANE Labs/Vital Signs - Labs Result Diagrams: 02/01/17 04:56 02/01/17 04:56 - Vital Signs Blood Pressure: 117/89 Heart Rate: 56 Respiratory Rate: 16 O2 Sat (%): 95 Height: 187.96 cm Weight: 88.45 kg ANE Physical Exam - Airway Neck exam: FROM Mallampati Score: Class 1 Mouth exam: normal dental/mouth exam - Pulmonary Pulmonary: no respiratory distress, clear to auscultation - Cardiovascular Cardiovascular: regular rate and rhythym - ASA Status ASA Status: II ANE Anesthesia Plan Anesthesia Plan: GA w LMA
[2017-02-01] MEDS ORDERED: fentaNYL 100 MCG/2 ML INJ ONE (12:40)
[2017-02-01] MEDS ORDERED: PROPOFOL/EMULSION 500 MG/50 ML BOTTLE IV ONE (12:41)
--- NOTE | 2017-02-01 12:43 | POSTOPPROG ---
Post Op Note Date of Operation: 02/01/17 Surgeon: Christiano Torres (# [id number]) Anesthesia: LMA Pre-op Diagnosis: Clot urinary retention, BPH Post-op Diagnosis: BPH w/ bleeding Procedure: Prostatic fossa fulguration Findings: See op note Inf/Abcess present in the surg proc area at time of surgery?: No EBL: Minimal Complications: None Specimen(s): None Text Box - Additional Text Additional Text: To RR in stable condition. Continue CBI overnight as a precaution. Will order to remove Stearns in AM & pt. should be able to go home once adequately voiding.
[2017-02-01] MEDS ORDERED: epHEDrine SULFATE 10 MG/ML SYR ONE ×2 (13:19)
[2017-02-01] MEDS ORDERED: GLYCOPYRROLATE 0.2 MG/1 ML VIAL ONE (13:20)
[2017-02-01] MEDS ORDERED: ONDANSETRON 4 MG/2 ML VIAL ONE (13:21)
[2017-02-01] MEDS ORDERED: DEXAMETHASONE 4 MG/ML VIAL ONE (13:21)
[2017-02-01] MEDS ORDERED: PROMETHAZINE HCL 25 MG/ML INJ IVP PRN (13:46)
[2017-02-01] MEDS ORDERED: fentaNYL 100 MCG/2 ML INJ IVP PRN (13:46)
[2017-02-01] MEDS ORDERED: LR 500 ML IV PRN (13:46)
[2017-02-01] MEDS ORDERED: NALOXONE HCL 0.4 MG/ML INJ IVP PRN (13:46)
--- NOTE | 2017-02-01 13:47 | POSTANESTH ---
Post Anesthetic Evaluation Cardiovascular Status: Normal, Stable Respiratory Status: Normal, Stable Level of Consciousness/Mental Status: Can Participate in Eval, Moderately Sleepy Pain Control: Adequate, Prn Tx Ordered Nausea/Vomiting Control: Adequate, Prn Tx Ordered Complications Possibly Related to Anesthesia: None Noted
--- NOTE | 2017-02-01 15:01 | HOSPPROG ---
Hospitalist Progress Note Assessment/Plan: 76 yo male with hx of BPH followed by Dr. Valle admitted for hematuria and urinary retention. 3 way estrada/bladder irrigation started in the E.D. Pelvic CT c/w large bladder thrombus. Had surgical removal of thrombus today #Hematuria, BPH, Large Bladder Thrombus, surgical removal 02/01 -leave CBI as a precaution today -Remove estrada per Urology in a.m., if able to void and no further complication, can d/c #Sinus bradycardia. He reports a baseline of 60. In shape, lots of physical activity. -Not symptomatic, no CP or palpitations -EKG c/w Sinus bradycardia -better today, ok to stop telemetry #Acute Pain due to hematuria/bladder thrombus -pain mgmt #Anemia, likely iron deficient. likely chronic. Will need f/u with his PCP for discussion about colonoscopy #DVT proph: no chemical proph due to clot/hematuria -Start SCD's Subjective: has returned from surgery . doing well. No CP or SOB. Bradycardia has improved. Objective: Vital Signs Temp Pulse Resp BP Pulse Ox 36.7 C 55 L 10 L 103/58 L 93 02/01/17 14:54 02/01/17 14:54 02/01/17 14:10 02/01/17 14:54 02/01/17 14:54 Laboratory Results 02/01/17 04:56 02/01/17 04:56 01/31/17 02/01/17 02/02/17 05:59 05:59 05:59 Intake Total 900 Output Total 8200 0 Balance -8200 900 - Physical Exam Constitutional: no apparent distress, appears nourished, not in pain Eyes: PERRL, EOMI Ears, Nose, Mouth, Throat: moist mucous membranes Cardiovascular: regular rate and rhythym, No JVD, No bradycardia Respiratory: no respiratory distress, no rales or rhonchi, clear to auscultation Gastrointestinal: normoactive bowel sounds, soft, non-tender abdomen, no palpable masses Skin: warm Neurologic: AAOx3 Psychiatric: interacting appropriately, not anxious, not encephalopathic ICD10 Worksheet Patient Problems: Problems Problem Status Onset Gross hematuria Acute Hematuria Acute Urinary outflow obstruction Acute Urinary retention Acute
--- NOTE | 2017-02-01 19:58 | GOP ---
[f rep st] OPERATIVE REPORT DATE OF OPERATION: 02/01/2017 SURGEON: Christiano Torres MD ANESTHESIA: Laryngeal mask. PREOPERATIVE DIAGNOSIS: Recurrent clot urinary retention with history of benign prostatic hypertrophy. POSTOPERATIVE DIAGNOSIS: 1. Clot urinary retention, resolved. 2. Benign prostatic hypertrophy with prostatic bleeding. PROCEDURE PERFORMED: Cystoscopy with prostatic fossa fulguration. FINDINGS: No significant residual clot in bladder. Evidence of recent prostatic bleeding related to BPH. SPECIMENS: None. ESTIMATED BLOOD LOSS: Minimal. INDICATIONS: This gentleman was admitted night before last with clot urinary retention requiring continuous bladder irrigation and intermittent manual irrigation. The patient's CT scan at that time revealed significant clot within the bladder. As a result, the patient presents for operative clot evacuation and prostatic fossa fulguration to reduce risk of future bleeding. The indications for the procedures, as well as potential risks and complications , were discussed with the patient preoperatively. He appeared to understand, his questions were answered, and he wished to proceed. Written informed surgical consent was thereafter obtained. DESCRIPTION OF PROCEDURE: The patient was brought to the operating room and administered laryngeal mask anesthesia. He was carefully placed in the dorsal lithotomy position on the cystoscopic table. Existing indwelling Stearns catheter was removed. The genital area was sterilely prepped with Betadine scrub and paint, then draped in usual sterile fashion. Cystoscopy was performed initially with a 25-Stateless sheath, using the 30-degree and 70-degree cystoscopic lenses. Anterior urethra revealed no abnormalities. Posterior urethra revealed significant residual lateral lobe BPH that extended even beyond the verumontanum. This tissue appeared friable and had some associated ecchymosis, suggestive of recent bleeding. There was no acute ongoing bleeding appreciated at this time. There was also some residual adenoma versus BPH regrowth along the left lateral lobe that extended to the bladder neck and slightly into the bladder. The trigone was inflamed, consistent with recent catheterization, but was otherwise unremarkable. The remainder of the bladder revealed a heavily-trabeculated mucosal pattern with numerous shallow diverticula, which is chronic for this patient. Ureteral orifices were normal in regard to shape and position along the trigone. The bladder otherwise revealed no areas of abnormal erythema, tumors, nor significant foreign bodies. All the clot appeared to have been evacuated out of the bladder with continuous irrigation management on the floor. No significant residual clot was identified. No areas of active bleeding within the bladder were seen. There were some postoperative transurethral prostate resection-type changes along the floor of the prostate and the bladder neck. I then inserted an Meyer resectoscope with a button electrode. I used a button electrode to thoroughly fulgurate the prostatic mucosa circumferentially. At the completion of procedure, no active bleeding was seen. The instruments were removed and an 18-Stateless 3-way Stearns catheter inserted with 20 cc of sterile fluid placed in the balloon. The catheter return at the end of the case was completely clear. The catheter was connected to bag drainage as well as continuous irrigation with normal saline. He was awakened, transferred to his bed, then taken to the recovery room. He tolerated the procedure well overall. COMPLICATIONS: None. DISPOSITION: He was transferred to Recovery in stable condition. He will be maintained on continuous irrigation overnight prophylactically. Catheter will be removed in the morning, and patient should be ready for discharge once voiding after that. The patient is finally in agreement in proceeding with GreenLight photovaporization of the prostate to treat his residual BPH that is the source for his recurrent hematuria. This will be scheduled accordingly, to be done as an outpatient. /[id number]/MODL MTDD
[2017-02-01] MEDS: FINASTERIDE 5 MG TAB PO SCH (20:34)
[2017-02-02 05:36] LABS: % IMMATURE GRANULYOCYTES 0.5 % (0.0-1.1); ABSOLUTE IMMATURE GRANULOCYTES 0.03 10^3/uL (0.00-0.10); ADD DIFF? NO; ADD MORPH? NO; ADD SCAN? NO; ATYPICAL LYMPHOCYTE FLAG 0 (0-99); FRAGMENT RBC FLAG 20 (0-99); HEMOGLOBIN 9.8 g/dL (13.7-17.5); LEFT SHIFT FLG 0 (0-99); LIPEMIA HEMOLYSIS FLAG 80 (0-99); MEAN CELL HEMOGLOBIN 25.5 pg (27.9-34.1); MEAN CELL HEMOGLOBIN CONCENTR. 31.6 g/dL (32.4-36.7); MEAN CELL VOLUME 80.5 fL (81.5-99.8); MEAN PLATELET VOLUME 10.8 fL (8.7-11.7); PLATELET CLUMPS FLAG 0 (0-99); PLATELET COUNT 214 10^3/uL (150-400); RED BLOOD CELL COUNT 3.85 10^6/uL (4.40-6.38); RED CELL DISTRIBUTION WIDTH 18.7 % (11.5-15.2)
[2017-02-02 05:54] LABS: ANION GAP 8 mEq/L (8-16); CALCIUM 9.6 mg/dL (8.5-10.4); CARBON DIOXIDE 22 mEq/l (22-31); CHLORIDE 110 mEq/L (97-110); CREATININE 0.9 mg/dL (0.7-1.3); GLOMERULAR FILTRATION RATE > 60; GLUCOSE 103 mg/dL (70-100); MAGNESIUM 1.9 mg/dL (1.6-2.3); POTASSIUM 4.4 mEq/L (3.5-5.2); SODIUM 140 mEq/L (134-144)
[2017-02-02 08:12] VITALS: RESP 20
[2017-02-02] MEDS: MULTIVITAMINS W-MINERALS 1 EACH TAB PO SCH (08:18)
[2017-02-02] MEDS: GLUCOSAMINE SULF 500 MG CAP PO SCH (08:18)
[2017-02-02 11:25] VITALS: BP 133/75; PULSE 54; TEMP 97.7; O2SAT 95
--- NOTE | 2017-02-02 13:40 | HOSPPROG ---
Hospitalist Progress Note Assessment/Plan: 76 yo male with hx of BPH followed by Dr. Valle admitted for hematuria and urinary retention. 3 way estrada/bladder irrigation started in the E.D. Pelvic CT c/w large bladder thrombus. Had cytoscopy with prostatic fossa fulguration on . Monitored overnight with CBI in place. This was removed this morning and he is urinating w/o difficulty. Dr. Valle has cleared him for discharge. His hospitalization was complicated by sinus bradycardia. No events on telemetry. If this persists, he may need an opt cardiology evaluation. This was d/w the patient at length. DDx: #Hematuria, BPH, Large Bladder Thrombus, surgical removal 02/01 #Sinus bradycardia. He reports a baseline of 60. In shape, lots of physical activity. -Not symptomatic, no CP or palpitations -EKG c/w Sinus bradycardia #Acute Pain due to hematuria/bladder thrombus -pain mgmt #Anemia, likely iron deficient. likely chronic. Will need f/u with his PCP for discussion about colonoscopy PE VSS NAD AAOX3 RRR CTAB S/NT/ND NO ESTRADA IN Discharge Meds: see med rec F/u: Per above total time spent on discharge is 35 minutes Objective: Vital Signs Temp Pulse Resp BP Pulse Ox 36.5 C 54 L 20 133/75 H 95 02/02/17 11:17 02/02/17 11:17 02/02/17 11:17 02/02/17 11:17 02/02/17 11:17 Laboratory Results 02/02/17 05:09 02/02/17 05:09 02/01/17 02/02/17 02/03/17 05:59 05:59 05:59 Intake Total 900 Output Total 8200 2150 Balance -8200 -1250 ICD10 Worksheet Patient Problems: Problems Problem Status Onset Gross hematuria Acute Hematuria Acute Urinary outflow obstruction Acute Urinary retention Acute
== END 2017-02-02 14:00 | disposition home or self-care (01) | DRG 714 ==
LOC: F1N 13:27 → INTOOBSV 13:28 → OBSVTOIN 13:28 → F3E 01-31 12:16 → OBSVTOIN 01-31 12:52
PROVIDERS: ADMIT Internal Medicine; ATTEND Internal Medicine
PROC: 0V508ZZ Destruction of Prostate, Via Natural or Artificial Opening Endoscopic (ICD-10-PCS; principal; 2017-02-01 12:30)
DX: N40.1 Benign prostatic hyperplasia with lower urinary tract symptoms (principal); R33.9 Retention of urine, unspecified; Z23 Encounter for immunization; Z96.642 Presence of left artificial hip joint; Z87.891 Personal history of nicotine dependence; Z80.42 Family history of malignant neoplasm of prostate
CPT/HCPCS: 96374; G0009; G0378; J1100; J1956; J2250; J2405; J2704; J3010; Q9967

== ENCOUNTER → 2017-03-15 | Outpatient (CLI) | payer OTHER | LOC: BHFA 11:00 | PROVIDERS: ATTEND Internal Medicine Cardiovascular Disease | DX: I48.91 Unspecified atrial fibrillation (principal) ==

== ENCOUNTER 2017-10-30 15:12 | Inpatient (IN) | payer OTHER ==
--- NOTE | 2017-10-30 16:19 | CPEKG ---
Heart Rate: 124 RR Interval: 484 P-R Interval: 132 QRSD Interval: 84 QT Interval: 324 QTC Interval: 466 P [place]: 142 QRS [place]: 26 T Wave [place]: 4 EKG Severity - OTHERWISE NORMAL ECG - EKG Impression: SINUS OR ECTOPIC ATRIAL TACHYCARDIA Electronically Signed By: Imtiaz Ford 30-Oct-2017 22:58:56
[2017-10-30] MEDS ORDERED: NS 500 ML IV ONE (16:20)
[2017-10-30 16:31] LABS: PLATELET COUNT 450 10^3/uL (150-400)
[2017-10-30 16:39] LABS: INR 1.14 (0.83-1.16); PROTIME(PATIENT) 14.8 SEC (12.0-15.0)
[2017-10-30] MEDS ORDERED: PANTOPRAZOLE SODIUM 40 MG VIAL IVP ONE (16:47)
[2017-10-30 16:48] LABS: CREATINE KINASE 64 IU/L (0-224)
--- NOTE | 2017-10-30 17:06 | EDPHY ---
H & P Time Seen by Provider: 10/30/17 16:20 HPI/ROS: HPI Lightheaded, fatigue. 76-year-old male by private vehicle. This patient reports that over the last 3 days he has felt very lightheaded and fatigued. He reports that his lightheadedness is much worse when he is sitting and stands after sitting for a prolonged period of time. He denies any associated chest pain. He states that he feels like his heart has been beating faster. Denies palpitations though. No shortness of breath. Patient denies any rectal bleeding or melenic stools. Last bowel movement was yesterday. He describes this is normal. He reports that he has been eating less but states that he ate breakfast this morning. This included some fruit and yogurt. He reports that he has a history of prostate reduction surgeries. Last surgery was about a year ago performed by Dr. Torres of the Urology service. He reports that secondary to this he has had issues with bleeding from his prostate and hematuria. He reports that for least the last 7 or 8 days he has had gross hematuria as well as passing clots. He denies significant pain. He has not had a fever. ROS: Constitutional: No fever, no chills. As above. Eyes: No discharge. No changes in vision. ENT: No sore throat. No nasal congestion or rhinorrhea. Respiratory: No cough. No shortness of breath. Cardiac: No chest pain, no palpitations. Gastrointestinal: No abdominal pain, no vomiting, no diarrhea. Genitourinary: As above. No dysuria or increased frequency with urination. Musculoskeletal: No back pain. No neck pain. No myalgias or arthralgias. Skin: No rashes. Neurological: No headache. No focal weakness or altered sensation. Past medical history: BPH, as above, hip surgery. Social history: Nonsmoker. Here by himself. Denies alcohol. Physical Exam: General Appearance: Alert, no distress. Appears pale. This patient is responding to questions appropriately and in full sentences. This patient appears well-hydrated and well-nourished. Eyes: Pupils equal and round no pallor or injection. No lid edema, erythema or injection. ENT, Mouth: Mucous membranes are moist. The pharyngeal tissues are unremarkable. No edema or swelling. No asymmetry suggestive of abscess. No erythema or exudates. Respiratory: There are no retractions, lungs are clear to auscultation with good air movement bilaterally. Cardiovascular: Regular rate and rhythm. Tachycardia. No murmur appreciated. Gastrointestinal: Abdomen is soft and nontender, no masses, bowel sounds normal. No focal tenderness at McBurney's point. No Saavedra sign. Rectal exam: No hemorrhoids, no gross blood. Normal brown stool. Normal tone. Genitourinary: He expressed clot from his penile meatus. Genitalia otherwise normal. Neurological: Motor sensory function is grossly intact. Cranial nerves are normal. Gait is normal. Skin: Warm and dry, no rashes. Musculoskeletal: Neck is supple and nontender. Extremities are symmetrical. All joints range without pain or impingement. Psychiatric: No agitation. No depression. Database: EKG: EKG time is 4:17 p.m.; EKG shows a narrow complex normal sinus rhythm with a ventricular rate of 124. The NC, QRS, QT intervals are within normal limits. There are no ST-T wave changes indicative of ischemic or injury pattern. No evidence of right heart strain. Interpreted by me. Imaging: Chest x-ray AP portable; the cardiac mediastinal silhouette is unremarkable. No evidence of infiltrate or pneumothorax. No acute cardiopulmonary disease process noted. Interpreted by me. Procedures: Emergency department course: IV placed x2, vital signs reviewed. Patient started on 500 cc of IV normal saline to be given over the next 30 min. Patient tachycardic and relatively hypotensive. He states that his blood pressures usually run in the high 120s to low 130 systolic. 4:40 p.m., patient noted to be significantly anemic with a hemoglobin of 7.6. Patient typed and screened. Patient will be transfused 2 units of PRBCs in the emergency department. Likely source is bleeding from his prostate. 4:50 p.m., Dr. Torres of Urology paged. 5:45 p.m., spoke with hospitalist, Dr. Karol Cunha, case discussed in detail with her. She accepts this patient for admission to the step-down unit. 6:00 p.m., spoke with Dr. Torres of Urology. Case discussed with him in detail. He will see this patient on consultation. He requested placement of a [address] Stearns catheter and irrigation. 7:00 p.m., the patient is going to be transferred shortly to the step-down unit. He is currently being transfused. Bladder irrigation has been started. He is sleeping but easily arousable. He still remains tachycardic at 120. Blood pressure currently 109/75. He was transferred to the step-down unit in stable condition. Differential Diagnosis: The differential diagnosis on this patient includes but is not limited to prostatic hemorrhage. Gastrointestinal bleeding, cystitis unlikely. This represents a partial list of diagnoses considered. These considerations are based on history, physical exam, past history, reassessment and diagnostic testing. Smoking Status: Former smoker Constitutional: Initial Vital Signs Temperature (C) 36.9 C 10/30/17 15:44 Heart Rate 123 H 10/30/17 15:44 Respiratory Rate 18 10/30/17 15:44 Blood Pressure 113/59 L 10/30/17 15:44 O2 Sat (%) 97 10/30/17 15:44 O2 Delivery Mode Room Air Allergies/Adverse Reactions: No Allergies [NKA] Allergy (Verified 10/30/17 15:47) Home Medications: Medication Instructions Recorded Multivitamins [Multivitamin (*)] 1 each PO DAILY 10/30/17 Medical Decision Making - Diagnostics Imaging Results: Imaging Impressions Chest X-Ray 10/30/17 16:21 Impression: Left lower lobe pneumonia Critical Care Time: I spent a total of 42 minutes of critical care time in obtaining history, performing a physical exam, bedside monitoring of interventions, collecting and interpreting tests and discussion with consultants but not including time spent performing procedures. - Data Points Laboratory Results: Laboratory Results 10/30/17 16:25 10/30/17 16:25 10/30/17 10/30/17 10/30/17 17:00 16:56 16:25 WBC RBC Hgb Hct MCV MCH MCHC RDW Plt Count MPV Neut % (Auto) Lymph % (Auto) Greer % (Auto) Eos % (Auto) Baso % (Auto) Nucleat RBC Rel Count Absolute Neuts (auto) Absolute Lymphs (auto) Absolute Monos (auto) Absolute Eos (auto) Absolute Basos (auto) Absolute Nucleated RBC Immature Gran % Immature Gran # Platelet Estimate Polychromasia Hypochromasia Microcytic Cells Tear Drop Cells Acanthocytes (Spur) Keratocytes Smear Review By PT INR APTT D-Dimer Sodium Potassium Chloride Carbon Dioxide Anion Gap BUN Creatinine Estimated GFR Glucose Calcium Creatine Kinase CK-MB (CK-2) Fraction Troponin I NT-Pro-B Natriuret Pep Procalcitonin 0.11 ng/mL H ng/mL (0.02-0.10) Stool Occult Bld Scrn NEGATIVE (NEGATIVE) Patient ABO/Rh A POSITIVE Antibody Screen NEGATIVE Crossmatch IS Only See Detail 10/30/17 10/30/17 10/30/17 16:25 16:25 16:25 WBC 12.72 10^3/uL H 10^3/uL (3.80-9.50) RBC 3.80 10^6/uL L 10^6/uL (4.40-6.38) Hgb 7.6 g/dL L g/dL (13.7-17.5) Hct 25.1 % L % (40.0-51.0) MCV 66.1 fL L fL (81.5-99.8) MCH 20.0 pg L pg (27.9-34.1) MCHC 30.3 g/dL L g/dL (32.4-36.7) RDW 18.5 % H % (11.5-15.2) Plt Count 450 10^3/uL H 10^3/uL (150-400) MPV 9.7 fL fL (8.7-11.7) Neut % (Auto) 83.3 % H % (39.3-74.2) Lymph % (Auto) 8.8 % L % (15.0-45.0) Greer % (Auto) 6.0 % % (4.5-13.0) Eos % (Auto) 0.7 % % (0.6-7.6) Baso % (Auto) 0.6 % % (0.3-1.7) Nucleat RBC Rel Count 0.2 % % (0.0-0.2) Absolute Neuts (auto) 10.59 10^3/uL H 10^3/uL (1.70-6.50) Absolute Lymphs (auto) 1.12 10^3/uL 10^3/uL (1.00-3.00) Absolute Monos (auto) 0.76 10^3/uL 10^3/uL (0.30-0.80) Absolute Eos (auto) 0.09 10^3/uL 10^3/uL (0.03-0.40) Absolute Basos (auto) 0.08 10^3/uL 10^3/uL (0.02-0.10) Absolute Nucleated RBC 0.02 10^3/uL H 10^3/uL (0-0.01) Immature Gran % 0.6 % % (0.0-1.1) Immature Gran # 0.08 10^3/uL 10^3/uL (0.00-0.10) Platelet Estimate INCREASED H (ADEQ) Polychromasia 1+ H Hypochromasia 1+ H Microcytic Cells 2+ H Tear Drop Cells 1+ H Acanthocytes (Spur) 1+ H Keratocytes 1+ H Smear Review By Pending PT 14.8 SEC SEC (12.0-15.0) INR 1.14 (0.83-1.16) APTT 23.5 SEC SEC (23.0-38.0) D-Dimer 3.75 ug/mLFEU H ug/mLFEU (0.00-0.50) Sodium 136 mEq/L mEq/L (135-145) Potassium 5.1 mEq/L mEq/L (3.5-5.2) Chloride 102 mEq/L mEq/L (97-110) Carbon Dioxide 23 mEq/l mEq/l (22-31) Anion Gap 11 mEq/L mEq/L (8-16) BUN 25 mg/dL H mg/dL (7-23) Creatinine 1.1 mg/dL mg/dL (0.7-1.3) Estimated GFR > 60 Glucose 103 mg/dL H mg/dL (70-100) Calcium 9.7 mg/dL mg/dL (8.5-10.4) Creatine Kinase 64 IU/L IU/L (0-224) CK-MB (CK-2) Fraction 1.05 ng/mL ng/mL (0.00-3.19) Troponin I 0.018 ng/mL ng/mL (0.000-0.034) NT-Pro-B Natriuret Pep 802 pg/mL H pg/mL (0-450) Procalcitonin Stool Occult Bld Scrn Patient ABO/Rh Antibody Screen Crossmatch IS Only Medications Given: Ceftriaxone Sodium/Dextrose (Rocephin 1 Gm (Premix)) 50 mls @ 100 mls/hr IV DAILY ALEJANDRO PRN Reason: Protocol Stop: 11/29/17 18:59 Last Admin: 10/30/17 21:26 Dose: 50 mls Discontinued Medications Sodium Chloride (Ns) 500 mls @ 1,000 mls/hr IV EDNOW ONE PRN Reason: Protocol Stop: 10/30/17 16:49 Last Admin: 10/30/17 16:29 Dose: 500 mls Pantoprazole Sodium (Protonix) 80 mg IVP EDNOW ONE Stop: 10/30/17 16:48 Last Admin: 10/30/17 17:38 Dose: Not Given Departure - Departure Disposition: [facility] Inpatient Acute Clinical Impression: Anemia, Hematuria, Prostatic hemorrhage
[2017-10-30] MEDS ORDERED: ACETAMINOPHEN 325 MG TAB PO PRN (17:47)
[2017-10-30] MEDS ORDERED: ONDANSETRON 4 MG/2 ML VIAL IVP PRN (17:47)
[2017-10-30] MEDS ORDERED: ONDANSETRON DISINTEGRATING 4 MG TAB PO PRN (17:47)
[2017-10-30] MEDS ORDERED: LIDOCAINE 2% JELLY 20 ML (UROJECT) ONE (18:15)
--- NOTE | 2017-10-30 19:33 | GHP ---
[f rep st] HISTORY AND PHYSICAL DATE OF ADMISSION: 10/30/2017 CHIEF COMPLAINT: Anemia, lightheadedness, tachycardia. PRIMARY UROLOGIST: Dr. Man. HISTORY OF PRESENT ILLNESS: A 76-year-old male, history of BPH, status post 3 TURPs, presenting with hematuria and lightheadedness. He has been very fatigued over the last several weeks. He has had intermittent hematuria with clots. He feels fine if he is lying down, but presyncopal when he stands up. He has not lost consciousness because he has been able sit or lie down when feeling poorly. He has had tingling in his fingers intermittently the last couple days. He has complaint of a cough with yellow sputum. No fevers, chills, or sweats. 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 He denies nausea, vomiting, myalgias. No hematochezia, hematemesis or melena. REVIEW OF SYSTEMS: I completed a 10-point review of systems, negative except as noted in HPI. PAST MEDICAL HISTORY: BPH with prostate reduction surgeries, last a year ago. PAST SURGICAL HISTORY: TURP x3, left EVELIN, cystoscopy 01/2017. FAMILY HISTORY: Noncontributory. SOCIAL HISTORY: Lives in [place] with his , 55 years. No tobacco, alcohol or illicits. PHYSICAL EXAM: VITAL SIGNS: Temperature 36.9, blood pressure 113/59, heart rate 113 to 123, respirations 18, 97% on room air. GENERAL: Thin male, sitting in bed, very fatigued, pale. HEENT: PERRLA. EOMI. Conjunctival pallor. Soft palate pale. Dry mucous membranes. CV: Tachy. Regular. No murmurs, gallops, or rubs. LUNGS: Clear. Diminished. Crackles left base. ABDOMEN: Soft, nontender, nondistended. Positive bowel sounds. : No suprapubic or CVA tenderness. Urine in cup is grossly bloody. MUSCULOSKELETAL: 5/5 upper and lower extremity strength. NEUROLOGIC: 2 through 12 intact. PSYCHIATRIC: Alert and oriented x3. LAB: Sodium 136, potassium 5.1, chloride 102, carbon dioxide 23, BUN 25, creatinine 1.1, baseline is 0.91, glucose 103. Troponin 0.018. BNP is 802. Procalcitonin is pending. UA with 50 to 182 WBCs, 50 to 182 RBCs. WBC is 12, hemoglobin 7.6, hematocrit 25, platelets 450 (prior H and H was 10 and 35), platelets 450. Fecal occult blood was negative. Chest x-ray is personally reviewed by me. No pleural effusion. Small retrocardiac opacity. ASSESSMENT AND PLAN: 1. Acute blood loss anemia: due to hematuria. Denies any other bleeding source. Dr. Man was consulted. He will be transfused 2 units of blood. Aggressive intravenous fluid resuscitation. Will further evaluate for infection with urine culture with positive UA, as well as respiratory culture with recent cough. Await procalcitonin before starting antibiotics, as this could be bronchitis. 2. Tachycardia: due to blood loss anemia, dehydration. Aggressive intravenous fluids. We will check a lactate. 3. History of BPH, prior hematuria and clots: Again, Dr. Man was consulted. 4. Leukocytosis: Mild. May be secondary to dehydration. UA is positive for whites. Will treat with ceftriaxone. Culture is pending. He is afebrile. If fevers, will check blood cultures. 5. Diet: Regular. 6. Deep venous thrombosis prophylaxis: Sequential compression devices. 7. Disposition: Patient warrants inpatient admission given acute blood loss anemia requiring transfusion, IV antibiotics and further urologic evaluation. /[id number]/MODL MTDD
--- NOTE | 2017-10-30 23:46 | CPEKG ---
Heart Rate: 101 RR Interval: 594 QRSD Interval: 84 QT Interval: 344 QTC Interval: 446 QRS [place]: 61 T Wave [place]: 60 EKG Severity - ABNORMAL ECG - EKG Impression: ATRIAL FLUTTER, A-RATE 241 EKG Impression: LOW VOLTAGE IN FRONTAL LEADS Electronically Signed By: Griselda Yanez 31-Oct-2017 16:59:44
[2017-10-31] MEDS: NS 1,000 ML IV SCH ×2 (00:48→09:37)
[2017-10-31] MEDS: PANTOPRAZOLE SODIUM 40 MG VIAL IVP SCH ×2 (00:48→06:39)
--- NOTE | 2017-10-31 07:55 | PDMN ---
Medical Necessity Medical necessity: Pt meets IP criteria per MD; est los >2 mn for eval/tx of hematuria w/clots, acute blood loss anemia w/tachycardia, dehydration, fatigue, lightheadedness & intermittent tingling in fingers, as well as productive cough r/t LLL pneumonia; admit to Step Down ICU for further workup/monitoring, blood transfusion, aggressive IVFs, IV abx & Urology consult; hx BPH s/p 3 TURPs; per H&P & order 10/30/17
[2017-10-31] MEDS ORDERED: IOPAMIDOL (ISOVUE 370) 100 ML BTL IV ONE (08:52)
[2017-10-31] MEDS: MULTIVITAMINS 1 EACH TAB PO SCH (09:37)
[2017-10-31] MEDS ORDERED: guaiFENesin/CODEINE PHOS 10 ML UDCUP PO PRN (09:44)
[2017-10-31] MEDS ORDERED: CEPACOL LOZENGE PO PRN (09:44)
[2017-10-31] MEDS ORDERED: BENZONATATE 100 MG CAP PO PRN (09:45)
[2017-10-31] MEDS: guaiFENesin 600 MG TAB.ER PO SCH ×2 (11:02→19:52)
--- NOTE | 2017-10-31 11:21 | GCON ---
[f rep st] CONSULTATION DATE OF CONSULTATION: 10/31/2017 REASON FOR CONSULTATION: Gross hematuria. HISTORY OF PRESENT ILLNESS: This is a pleasant 76-year-old man who is well known to our office for similar complaints. He presented to the emergency room with gross hematuria and lightheadedness with increasing fatigue, had also been having some tingling in his fingers and feeling generally poor overall, but denying loss of consciousness, fever, or chills. REVIEW OF SYSTEMS: 10-point review of systems negative except as mentioned in the HPI with the addition of a cough. PAST MEDICAL HISTORY: BPH with multiple prostate surgeries. SURGICAL HISTORY: Prostate surgeries, EVELIN on the left, cystoscopy in 2017. FAMILY HISTORY: Noncontributory. SOCIAL HISTORY: Lives in [place] with his . No tobacco, alcohol, or drug use. PHYSICAL EXAMINATION: VITAL SIGNS: Blood pressure 100/56, heart rate 106, respirations 14, O2 97 on room air, temperature 36.6. GENERAL: In general, this is a pale, mildly ill appearing man in no acute distress. HEENT: Normocephalic , atraumatic. Extraocular movements intact. NECK: Supple. No lymphadenopathy. Trachea midline. RESPIRATORY: No accessory respiratory muscle use. CARDIAC: Regular rate. No lower extremity edema. No obvious JVD. GASTROINTESTINAL: Abdomen was soft, nondistended, nontender to palpation. GENITOURINARY: No tenderness to palpation over bladder. Catheter in place currently draining dark yellow urine. INTEGUMENT: Somewhat pale. MUSCULOSKELETAL: Patient was in a wheelchair, but able to move upper extremities without difficulty. NEUROLOGIC: He was alert and oriented. Affect appropriate to situation. LABORATORY: White blood cell count of 11.45, hemoglobin 8, hematocrit 26. Lactic acid 1.8. Chemistry, sodium 141, potassium 4.7, chloride 107, carbon dioxide 22, anion gap 12, BUN 22, creatinine 1.0, glucose 105, calcium 8.5. Urinalysis positive for blood and bacteria. Urine culture is pending. The patient also had EKG, was found to be in atrial flutter. Had a CT of the chest that showed bilateral lower lobe pneumonia. ASSESSMENT AND PLAN: Gross hematuria. The patient has been seen in our office numerous times for recurrent gross hematuria. Most recently had a GreenLight laser 02/2017. He has discussed this at length with Dr. Torres. At this point, we are recommending an open subtotal prostatectomy. This was again discussed with the patient in detail along with other options including repeat GreenLight laser versus TURP versus open prostatectomy. I strongly recommend he return to our office once he is feeling better to again discuss these options as I am concerned that this will become a recurrent situation for this patient. Case was also reviewed with Dr. Torres. /[id number]/MODL MTDD
--- NOTE | 2017-10-31 11:50 | ASMTCASEMG ---
Living Arrangements What is your living Answers: With Spouse arrangement? Who do you live with? Type Of Residence What kind of residence do Answers: House you live in? Discharge Plan Comments Coordination Status Comments Notes: Patient is a76yo male who was admitted for acute blood loss anemia, tachycardia, hx of BPH, leukocytosis, deep vein thrombosis. Patient requires inpatient status due to need for blood transfusion, IV ABX, and further urologic evaluation. Echocardiography consult ordered but no other therapies at this time. D/C plan TBD. CM will follow. Date Signed: 10/31/2017 11:50 AM Electronically Signed By:France Calderon LCSW
[2017-10-31] MEDS: METOPROLOL TARTRATE 25 MG TAB PO SCH ×3 (13:05→19:52)
--- NOTE | 2017-10-31 15:29 | ECHO ---
[email or web address] [address] [address] Main: [phone] Fax: [email or web address] Echocardiogram Name: SHARRON HIGGINBOTHAM MR#: [id number] Study Date: 10/31/2017 Study Time: 11:45 AM Date of : 1940 Age: 76 year(s) Height: 188 cm (74 in.) Weight: 87.09 kg (192 lb.) BSA: 2.14 m2 Gender: Male Examination: Echo Indication: EVAL NEW A FLUTTER Image Quality: Adequate Contrast: Requested by: Serge Rothman BP: 120 mmHg/69 mmHg Heart Rate: Rhythm: Indication: EVAL NEW A FLUTTER Procedure Staff Adult Care Manager: Melany Samuels RD Reading Physician: Singh Garcia MD Requesting Provider: Conclusions: No pericardial effusion. Preserved left ventricular systolic function. Left atrial enlargement. Mild mitral regurgitation. Right ventricular systolic pressure of 34 mm of mercury. Measurements: Chambers Valvular Assessment AV/MV Valvular Assessment TV/PV Normal Normal Normal Name Value Range Name Value Range Name Value Range Ao Renata (2D): 3.7 cm (1.4 cm-2.6 AV meanP mmHg ( - ) TR Vmax: 2.71 mm/s ( - ) cm) HARRY (VTI): 2.0 cm ( - ) TR PGmax: 29 mmHg ( - ) IVSd (2D): 1.0 cm (0.6 cm-1.1 MV E Vmax: 0.95 m/s ( - ) syst. PAP: 34 mmHg ( - ) cm) MV A Vmax: 0.63 m/s ( - ) PV Vmax: 0.79 m/s (0.6 m/s-0.9 LVDd (2D): 3.9 cm (4.2 cm-5.9 MV E/A: 1.51 ( - ) m/s) cm) MV PHT: 0.059 s ( - ) PV PGmax: 2 mmHg ( - ) LVDs (2D): 2.7 cm (2.1 cm-4 cm) MVA (PHT): 3.7 s ( - ) LVPWd (2D): 1.0 cm (0.6 cm-1 cm) LVOTd 2.0 cm 2.0 cm mm LVEF (BP): 59 % (>=55 %) RVDd(2D): 4.3 cm (1.9 cm-3.8 cmmm) Continued Measurements: Chambers Valvular Assessment AV/MV Valvular Assessment TV/PV Name Value Name Value Name Value LADs: 4.4 cm MV DecTime: 183 m/s CVP (est.): 5 mmHg LADs Lon.6 cm MV E/E' Lateral: 6.20 LA Area: 27.1 cm2 LA Volume: 105 ml Patient: SHARRON HIGGINBOTHAM Study Date: 10/31/2017 Page 1 of 2 11:45 AM LA Volume Index: 49.1 ml/m2 RA Area: 25.9 cm2 Additional Vessels Name Value Ao Ascendin.2 cm Inferior Vena Cava: 1.6 cm Findings: Left Ventricle: Normal size left ventricle. No LV hypertrophy. Normal global systolic LV function. EF is 59 %. No regional wall motion abnormality. Normal diastolic LV function. Right Ventricle: Normal size right ventricle. Normal RV function. Left Atrium: The left atrium is mildly to moderately dilated. Right Atrium: The right atrium is normal in size. Mitral Valve: The mitral valve is normal in appearance and function. Mild mitral valve regurgitation is present. No mitral stenosis is present. Aortic Valve: The aortic valve is normal in appearance and function. There is no aortic valve regurgitation. Tricuspid Valve: The tricuspid valve is normal in appearance and function. Mild tricuspid regurgitation is present. Right ventricular systolic pressure measures 34mmHg. The pulmonary artery pressure is normal. Pulmonic Valve: The pulmonic valve is normal in appearance and function. There is no pulmonic regurgitation seen. Aorta: The aorta is normal. Normal size aortic root measuring 3.7 cm. Normal size ascending aorta measuring 3.2 cm. IVC: The IVC is normal sized. Pericardium: No pericardial effusion. No pleural effusion. (No Signature Object) Patient: SHARRON HIGGINBOTHAM Study Date: 10/31/2017 Page 2 of 2 11:45 AM [id number]
--- NOTE | 2017-10-31 16:25 | HOSPPROG ---
Hospitalist Progress Note Assessment/Plan: Assessment: 76-year-old male presenting with acute gross hematuria resultant acute blood loss anemia complicated by atrial flutter with acute rapid ventricular response as well as community-acquired pneumonia Plan: 1. Gross hematuria. Acute, most likely secondary to underlying BPH with prior history of gross hematuria following GreenLight procedure, most recently in February of 2017 -initially treated with CBI, patient has not passed any clots since last night and is safe for the CBI to remove at this time, confirmed with Urology -urology recommendations consist of open subtotal prostatectomy, and they recommend following up in the outpatient setting to continue the conversation and schedule as patient's hematuria will most likely be a recurrent issue -continue monitor urine output following Estrada catheter removal 2. Acute blood loss anemia. Evidenced by hemoglobin level of 7.8, with visible blood loss in urine -hemoglobin level did not respond appropriately after receiving 2 units of packed red blood cells, and I suspect the patient was hemoconcentrated on presentation and initial hemoglobin level was most likely significantly lower than 7.8 -given his hemoglobin level is currently 8, he continues to be in rapid atrial flutter and fibrillation, will give 1 additional unit of packed red blood cells at this time -follow-up hemoglobin level tomorrow a.m. 3. Atrial flutter and atrial fibrillation. Acute rapid ventricular response, new problem this provider, further workup indicated. Most likely provoked by underlying infection as well as blood loss anemia, patient reports that he has a history of atrial fibrillation provoked by acute illness and has previously been on a bernard blocking agent which was discontinued previously -discussed with Dr. Murphy on team rounds, we agreed to re-evaluate with echocardiogram and TSH level, as well as continue telemetry monitoring on PCU now that the patient is stable for transfer -given the patient's atrial fibrillation persists on telemetry and his heart rate is now around 110 on telemetry, personally interpreted, will initiate low- dose beta-bee and gauge effect -given patient's low chads 2 Vasc score, as well as his recent active bleeding, would recommend aspirin 81 mg for CVA prevention, to be initiated 1 week after discharge, discussing with Urology -will recommend the patient follow up with [facility] for ongoing conversations regarding CVA prevention as well as bernard blocking therapy 4. Suspected streptococcal community-acquired pneumonia. Present on admission, left lobar, most likely secondary to streptococcal organism, pulmonary symptoms prior to arrival with leukocytosis, elevated procalcitonin level -D-dimer elevated so CT angiogram obtained, no pulmonary embolism, S1 he has informed me that there is a left lower lobe infiltrate, and I have personally interpreted the CT agree with this finding -day 2 of IV ceftriaxone, will continue antibiotics for 5 day course -continue monitor white blood cell count 5. BPH. Chronic, continue medication Diet. Regular Prophylaxis. Moderate risk patient, hold pharmacologic prophylaxis given bleeding, SCDs Code. Full Disposition. Anticipated discharge is 11/01, pending stabilization of conditions outlined above. Subjective: Patient reports his cough is somewhat improving, denies chest pain Objective: Vital Signs Temp Pulse Resp BP Pulse Ox 36.4 C 125 H 18 91/65 L 94 10/31/17 13:00 10/31/17 14:51 10/31/17 13:00 10/31/17 14:51 10/31/17 13:00 Microbiology 10/30/17 19:20 Respiratory Panel (PCR) - Final Nasal, Sinus - Swab No Organism Detected Laboratory Results 10/31/17 07:50 10/31/17 04:25 10/30/17 10/31/17 11/01/17 05:59 05:59 05:59 Intake Total 2500 1063 Output Total 8400 500 Balance -5900 563 PT 14.8 SEC (12.0-15.0) 10/30/17 16:25 INR 1.14 (0.83-1.16) 10/30/17 16:25 - Pending Discharge Pending Discharge Within 24 Hours: Yes Pending Discharge Date: 11/01/17 Pending Discharge Time: 11:00 - Physical Exam Constitutional: no apparent distress, appears nourished, not in pain, No uncomfortable Cardiovascular: irregularly irregular, tachycardia, No systolic murmur, No edema Respiratory: reduced air movement (Left base), inspiratory crackles (Left base) , No expiratory wheeze, No bronchial breath sounds, No aegophony, No respiratory distress Gastrointestinal: normoactive bowel sounds, soft, non-tender abdomen, no palpable masses, No distension Genitourinary: estrada in urethra (No clot visible) Neurologic: AAOx3, sensation intact bilaterally, No weakness Psychiatric: interacting appropriately, not anxious, not encephalopathic, thought process linear ICD10 Worksheet Patient Problems: Problems Problem Status Onset Gross hematuria Acute Urinary retention Acute Hematuria Acute Urinary outflow obstruction Acute Anemia Acute Prostatic hemorrhage Acute
--- NOTE | 2017-10-31 18:17 | SOAPPROG ---
GERDA Progress Note Assessment/Plan: Assessment: BPH-related recurrent gross hematuria with anemia - doing better at this time. Voiding well without significant hematuria since Stearns removal. His hematuria has been intermittent, chronic, and refractory to Greenlight PVP last year. Plan: 1. As I have discussed w/ him in the past, he needs to undergo an open subtotal prostatectomy. We discussed this again tonight. Without undergoing this surgery I believe he will continue to have recurrent episodes of significant hematuria that will be problematic. 2. His risk of recurrent, significant hematuria and subsequent anemia is very high, so I believe he needs to stay off all anticoagulants until his prostate has been surgically treated. 3. Restart finasteride. He has this at home. Will restart here this evening. 4. He has been instructed to schedule a follow-up in my office after hospital discharge. Subjective: Feels much better following transfusions. Voiding well since Stearns removal. Objective: Vital Signs Temp Pulse Resp BP Pulse Ox 36.4 C 125 H 18 91/65 L 94 10/31/17 13:00 10/31/17 14:51 10/31/17 13:00 10/31/17 14:51 10/31/17 13:00 Microbiology 10/30/17 19:20 Respiratory Panel (PCR) - Final Nasal, Sinus - Swab No Organism Detected Laboratory Results 10/31/17 07:50 10/31/17 04:25 10/30/17 10/31/17 11/01/17 05:59 05:59 05:59 Intake Total 2500 1613 Output Total 8400 500 Balance -5900 1113 PT 14.8 SEC (12.0-15.0) 10/30/17 16:25 INR 1.14 (0.83-1.16) 10/30/17 16:25 Physical Exam - Physical Exam General Appearance: WD/WN, alert, no apparent distress Neuro/Psych: alert, normal mood/affect, oriented x 3 ICD10 Worksheet Patient Problems: Problems Problem Status Onset Anemia Acute Hematuria Acute Prostatic hemorrhage Acute Gross hematuria Acute Urinary outflow obstruction Acute Urinary retention Acute
[2017-10-31] MEDS: FINASTERIDE 5 MG TAB PO SCH (18:34)
[2017-11-01 04:33] LABS: PLATELET COUNT 387 10^3/uL (150-400)
[2017-11-01] MEDS ORDERED: AMOXICILLIN/CLAVULANATE POT 875/125 MG TAB PO SCH (08:00)
[2017-11-01] MEDS ORDERED: PNEUMOC 13-VAL CONJ-DIP CRM/PF 0.5 ML SYR IM ONE (09:00)
[2017-11-01] MEDS: FINASTERIDE 5 MG TAB PO SCH (09:26)
[2017-11-01] MEDS: MULTIVITAMINS 1 EACH TAB PO SCH (09:27)
[2017-11-01] MEDS: guaiFENesin 600 MG TAB.ER PO SCH (09:27)
[2017-11-01] MEDS: METOPROLOL TARTRATE 25 MG TAB PO SCH (09:27)
[2017-11-01] MEDS ORDERED: METOPROLOL TARTRATE 25 MG TAB PO ONE (09:38)
[2017-11-01 13:04] VITALS: BP 110/66
--- NOTE | 2017-11-01 18:54 | PDDCSUM ---
Discharge Summary Discharge Summary: DISCHARGE SUMMARY FOLLOW-UP ITEMS: Follow up with Dr. Torres next week and repeat CBC at that time Establish care with Jarrell Rivas after undergoing prostatectomy DATE OF ADMISSION: 10/30/2017 DATE OF DISCHARGE: 11/01/2017 DISCHARGE DIAGNOSES: 1. Acute gross hematuria 2. Acute blood loss anemia 3. Atrial flutter and atrial fibrillation with acute rapid ventricular response 4. Suspected streptococcal community-acquired pneumonia 5. Chronic BPH CONSULTATIONS: Urology PROCEDURES / IMAGING: Continuous bladder irrigation Echocardiogram demonstrating normal ejection fraction, no focal wall motion abnormalities, mild mitral regurgitation CHIEF COMPLAINT: Acute hematuria SUBJECTIVE: Patient is feeling well at time discharge, he has been urinating without any clots, he denies any chest pain or lightheadedness upon ambulation PHYSICAL EXAM ON DISCHARGE: Systolic blood pressure is 100-110, heart rate is 90-100, no murmurs, no lower extremity edema, lungs are clear to auscultation bilaterally LABS ON DISCHARGE: White blood cell count 80503, hemoglobin 8.5, platelets there are knee 7000, potassium 4.6, creatinine 0.9 HOSPITAL COURSE BY PROBLEM: The patient presented with acute hematuria secondary to BPH and refractory to previous GreenLight procedure, resulting in acute blood loss anemia and hemoglobin level of 7.8 which was symptomatic, received 3 units of packed red blood cells with resultant hemoglobin level of 8.5 and no evidence of ongoing urinary bleeding. He initially required continuous bladder irrigation in order to clear his clots, and once his clots were cleared, the CBI was removed successfully. He was able to void successfully prior to discharge. His situation was complicated by a left-sided suspected streptococcal pneumonia which was present on admission, resulting in pulmonary symptoms and leukocytosis. He initially received IV ceftriaxone, but after his white blood cell count did not improve, he was adjusted to levofloxacin prior to discharge, for 5 subsequent days of treatment. He also experienced concomitant atrial flutter and atrial fibrillation with acute rapid ventricular response, and he has previously experienced this in the setting acute illness. Repeat echocardiogram demonstrated no evidence of severe valvular abnormalities or focal wall motion abnormalities, and his TSH level was normal. Consequently, he was placed on bernard blocking therapy for rate control, which was accomplished with metoprolol tartrate 25 mg twice daily. He was not cardioverted given that he will undergo prostatectomy in the near future, and Urology wanted to avoid systemic anticoagulation given his recurrent hematuria. He will undergo said prostatectomy in the near future, and then I recommend that he follow up with [facility] thereafter to determine whether he should go on aspirin therapy or receive consideration of cardioversion and subsequent anticoagulation. DISCHARGE MEDICATIONS: Please see official discharge medication reconciliation sheet in chart , metoprolol tartrate 25 mg twice daily, finasteride 5 mg daily, levofloxacin 750 mg once daily x5 days. DISCHARGE INSTRUCTIONS: Please have labs drawn next week and follow up with Dr. Torres. TIME SPENT: Greater than 30 minutes were spent on direct patient care, as well as discharge planning and preparation.
[2017-11-01] MEDS ORDERED: METOPROLOL TARTRATE 25 MG TAB PO SCH (21:00)
== END 2017-11-01 15:05 | disposition home or self-care (01) | DRG 725 ==
LOC: OBSVTOIN 17:47 → F2N 22:46 → F2W 10-31 13:14
PROVIDERS: ADMIT Internal Medicine; ATTEND Internal Medicine
PROC: 30233N1 Transfusion of Nonautologous Red Blood Cells into Peripheral Vein, Percutaneous Approach (ICD-10-PCS; principal; 2017-10-30)
DX: N40.0 Benign prostatic hyperplasia without lower urinary tract symptoms (principal); R31.0 Gross hematuria; J13 Pneumonia due to Streptococcus pneumoniae; D62 Acute posthemorrhagic anemia; I48.92 Unspecified atrial flutter; I48.91 Unspecified atrial fibrillation; Z96.649 Presence of unspecified artificial hip joint
CPT/HCPCS: G0009; J0696; P9016; Q9967